=== PATIENT | male | born 1965 | race Caucasian/White ===

== ENCOUNTER 2023-01-26 08:00 | Inpatient (IN) | payer BC, SELFPAY ==
[2023-01-26] VITALS (9 sets, daily range): BP systolic 149–178; BP diastolic 74–96; PULSE 58–93; RESP 16–17; TEMP 36.4; O2SAT 96–98
--- NOTE | 2023-01-26 08:51 | XRR_ITS ---
PROCEDURE INFORMATION: Exam: XR Chest Exam date and time: 01/26/2023 9:20 AM Age: 57 years old Clinical indication: Dyspnea; Additional info: Partially resolved hemiparesis TECHNIQUE: Imaging protocol: Radiologic exam of the chest. Views: 1 view. COMPARISON: No relevant prior studies available. FINDINGS: Lungs: Unremarkable. No consolidation. Pleural spaces: Unremarkable. No pleural effusion. No pneumothorax. Heart/Mediastinum: Unremarkable. No cardiomegaly. Bones/joints: Unremarkable. XR/XR chest 1V portable [id number] IMPRESSION: No acute findings.
--- NOTE | 2023-01-26 08:52 | CTR_ITS ---
PROCEDURE INFORMATION: Exam: CT Head Without Contrast Exam date and time: 01/26/2023 9:24 AM Age: 57 years old Clinical indication: Stroke-like symptoms; Altered mental status/memory loss; Additional info: Symptoms of acute stroke TECHNIQUE: Imaging protocol: Computed tomography of the head without contrast. Radiation optimization: All CT scans at this facility use at least one of these dose optimization techniques: automated exposure control; mA and/or kV adjustment per patient size (includes targeted exams where dose is matched to clinical indication); or iterative reconstruction. Other technique: STROKE PROTOCOL was implemented. REPORTING DATA: Count of CT and Cardiac NM exams in prior 12 months: This patient has received 0 known CTs and 0 known cardiac nuclear medicine studies in the 12 months prior to the current study. COMPARISON: No relevant prior studies available. RADIATION DOSE METRICS: Total DLP (mGy-cm): 1220.2 FINDINGS: Brain: Prominent cisterna magna. No intracranial hemorrhage. No midline. Areas of suspected chronic disease are seen chiefly in the right parietal white matter. There is an old infarcts suspected in the left posterior parietal high qureshi matter. Cerebral ventricles: No ventriculomegaly. Paranasal sinuses: Visualized sinuses are unremarkable. No fluid levels. Mastoid air cells: Visualized mastoid air cells are well aerated. Bones/joints: Unremarkable. No acute fracture. Soft tissues: Unremarkable. CT/CT head thrombolytic [id number] IMPRESSION: Chronic age-related changes with possible old white matter infarcts and old left posterior parietal high qureshi matter infarct. No intracranial hemorrhage. ASSESSMENT: ASPECTS ([place] Stroke Program Early CT Score) is 10.
--- NOTE | 2023-01-26 08:54 | ED_ITS ---
HPI - Extremity Problem General: Chief complaint: Extremity Problem,Nontraumatic Stated complaint: lost feeling in both legs and right arm numb Time Seen by Provider: 01/26/23 08:08 History of Present Illness: Patient presents with complaints of right sided weakness Patient reports 3-week history of right lower extremity weakness that waxes and wanes. Last night at 0 100 patient woke up with right upper extremity weakness. Patient describes inability to ambulate or grasp any objects with the right arm. He attempted to go to another facility but sat in the waiting room for about 3 or 4 hours. Patient ultimately got frustrated and left the hospital. This morning he opted to come to [facility] for evaluation. At the time of his arrival patient has improvement in his right upper and right lower extremity although still pretty significant. He can range of motion the right upper extremity but is weaker Patient is ataxic with the right lower extremity Patient also relays a history approximately 1 month ago with word finding difficulty and speech difficulty. His symptoms lasted 3 days Associated symptoms: Deny chest pain, fever(s) or rash Review of Systems General: Reports: 10 or more systems reviewed and unremarkable except in HPI and below Const: Denies: fever(s), chills, change in appetite, change in weight, fatigue or malaise Eyes: Denies: change in vision, eye discomfort, eye discharge or eye redness ENMT: Denies: throat pain, enlarged tonsils, odynophagia, hoarseness, ear or mastoid pain, ear discharge, change in hearing, tinnitus, nasal discharge, nasal congestion, post nasal drip or sinus pain Card: Denies: chest pain, palpitations, irregular heart rhythm, edema, dyspnea on exertion, orthopnea or leg pain with exertion Resp: Denies: dyspnea, productive cough, non-productive cough, wheezing, str idor or chest congestion GI: Denies: abdominal pain, nausea, vomiting, dysphagia, diarrhea, constipation, bloating, GI cramping or hematochezia : Denies: flank pain, dysuria, urinary frequency, urinary urgency, urinary hesitancy, oliguria or hematuria Musc: Denies: neck pain, back pain, extremity pain, joint pain, joint swelling, joint redness, joint warmth or muscle weakness Skin/Breast: Denies: rash, pruritus, erythema, photosensitivity or new lesions Neuro: Reports: weakness in extremities, sensory changes and difficulty walking; Denies: headache(s), numbness in extremities, lack of coordination, frequent falls, dizziness, confusion, Slurred speech present, difficulty communicating thoughts, seizure-like activity or involuntary movements Endo: Denies: polyuria, polydipsia or tired all the time Herman/Lymph: Denies: easy bruising or easy bleeding PFSH ED PFSH: Medical History (Updated 01/26/23 @ 12:16 by OSWALD Mckeon) Low back pain potentially associated with radiculopathy Physical Exam Const: COMMON NORMALS: no acute distress, patient oriented x3 and alert GENERAL APPEARANCE: cooperative ORIENTATION/CONSCIOUSNESS: Yes awake, Yes oriented to person, Yes oriented to place and Yes oriented to time HENMT: COMMON NORMALS: normocephalic and atraumatic HEAD & SCALP: normocephalic and atraumatic FACE & SINUS: normal facial exam MOUTH: Normal oral and palatal mucosa present THROAT: posterior oropharynx normal Eye: COMMON NORMALS: Equal, round and reactive pupils present, EOMs intact bilaterally, conjunctivae normal and no scleral icterus GENERAL EYE: appearance normal, both eyes and all related structures ALIGNMENT: Yes alignment normal PERIORBITAL: periorbital findings normal CONJUNCTIVA: Yes conjunctivae normal PUPIL: Yes Equal, round and reactive pupils present Neck/C-Spine: COMMON NORMALS: full ROM GENERAL: Yes normal visual inspection Lymph: LYMPHATIC: no lymphadenopathy noted Chest: COMMONS NORMALS: normal inspection of the chest Breast/axilla inspection: Yes no chest deformity, asymmetry, normal contours, no nodules, masses, tenderness Resp: COMMON NORMALS: normal respiratory effort, No retractions, No use of accessory muscles and clear to auscultation bilaterally EFFORT & INSPECTION: Yes able to speak in complete sentences and Yes symmetric chest movement AUSCULTATION: clear to auscultation bilaterally Cardio: COMMON NORMALS: regular rate, regular rhythm and Peripheral pulses 2+ throughout RATE: regular rate RHYTHM: regular rhythm PERIPHERAL PULSES: Peripheral pulses 2+ throughout GI: COMMON NORMALS: Normal to inspection, nondistended, normoactive bowel sounds present, Soft to palpation, non-tender and No hepatosplenomegaly present INSPECTION: Yes normal to inspection AUSCULTATION: Yes normoactive bowel sounds PALPATION: Yes Soft to palpation and Yes No hepatosplenomegaly present RECTAL EXAM: Yes deferred Extremity: COMMON NORMALS: normal to inspection GENERAL: Yes normal exam except as noted Neuro: COMMON NORMALS: patient oriented x3 SENSORIUM/ORIENTATION: Yes alert, Yes oriented to person, Yes oriented to place and Yes oriented to time CRANIAL NERVES: Yes CN normal except as noted COORDINATION/BALANCE: No nyhluc-sm-ncdr test normal (Ataxic), No hniw-ko-ddcl test normal (Ataxic with the right lower extremity) and No Normal rapid alternating movements of the di stal upper extremity present (Neuro) (Abnormal with right upper extremity) COORDINATION: tilqvv-ug-hoks test abnormal (Ataxic), gigb-wm-ysek test abnormal (Ataxic with the right lower extremity) and abnormal rapid alternating movement UE (Abnormal with right upper extremity) PUPIL EXAM: Normal pupillary reactivity/response: right, left and bilateral Psych: COMMON NORMALS: mental status grossly normal, Normal thought process present, cooperative, activity/motor behavior normal, denies homicidal ideation and denies suicidal ideation THOUGHT PROCESS: Normal thought process present Skin: COMMON NORMALS: no rashes or lesions noted, no wounds and turgor normal GENERAL SKIN EXAM: no rashes or lesions noted and turgor normal Course Vital Signs: Vital signs: Vital Signs Pulse Rate 85 01/26/23 10:47 Respiratory Rate 16 01/26/23 08:28 Blood Pressure 156/81 01/26/23 10:47 Pulse Oximetry 97 01/26/23 10:47 Oxygen Delivery Me thod Room Air 01/26/23 08:28 MDM - Extremity (Nontraumatic) Medical Decision Making Patient was evaluated in the emergency department for complaints of right upper and lower extremity weakness. He has had this weakness in the right lower extremity for about 3 weeks. The symptoms would ask and wane but always present. Right upper extremity weakness developed at 0 100 last night Differential diagnosis included neurological events including a CVA, cervical and lumbar nerve root compressions however unlikely. Patient underwent a CT head which revealed no acute hemorrhage but evidence of multiple old infarcts. Laboratory studies revealed a leukocytosis without evidence of shift. No electrolyte abnormalities. EKG completed at 0901 which revealed a sinus rhythm without ectopy, ST elevation or abnormal T wave inversion. I spoke with Dr. Moise, neurology who has recommended a CT angio, 2D echo with bubble study, thrombosis labs, sed rate, JOSÉ, CRP I also spoke with hospitalist who is agreeable to admission Patient and family updated Lab Data 01/26/23 09:46 01/26/23 09:46 Radiology Impressions Chest X-Ray 01/26/23 08:51 IMPRESSION: No acute findings. 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 No intracranial hemorrhage. ASSESSMENT: ASPECTS ([place] Stroke Program Early CT Score) is 10. Laboratory Results WBC 14.7 10^3/uL (4.0-10.0) H 01/26/23 09:46 RBC 5.43 10^6/uL (4.1-5.3) H 01/26/23 09:46 Hgb 15.6 g/dL (11.7-16.6) 01/26/23 09:46 Hct 47.2 % (42.0-52.0) 01/26/23 09:46 MCV 86.9 fl (80-94) 01/26/23 09:46 MCH 28.7 pg (28.0-34.0) 01/26/23 09:46 MCHC 33.1 g/dL (30.0-36.0) 01/26/23 09:46 RDW 13.6 % (12.1-15.1) 01/26/23 09:46 Plt Count 253 10^3/cmm (130-400) 01/26/23 09:46 MPV 11.8 fL (7.4-10.4) H 01/26/23 09:46 Neut % (Auto) 69.4 % 01/26/23 09:46 Lymph % (Auto) 23.9 % 01/26/23 09:46 [place] % (Auto) 6.1 % 01/26/23 09:46 Eos % (Auto) 0.2 % 01/26/23 09:46 Baso % (Auto) 0.1 % 01/26/23 09:46 Neut # (Auto) 10.19 10^3/uL (1.8-7.7) H 01/26/23 09:46 Lymph # (Auto) 3.5 10^3/uL (0.8-4.8) 01/26/23 09:46 [place] # (Auto) 0.9 10^3/uL (0.2-0.9) 01/26/23 09:46 Eos # (Auto) 0.0 10^3/uL (0.0-0.8) 01/26/23 09:46 Baso # (Auto) 0.0 10^3/uL (0.0-0.1) 01/26/23 09:46 Nucleated RBC % (auto) 0 % 01/26/23 09:46 Nucleated RBCs # 0.0 /100WBC 01/26/23 09:46 PT 13.50 SECONDS (12.1-14.9) 01/26/23 09:46 INR 1.00 (0.8-1.2) 01/26/23 09:46 APTT 29.5 SECONDS (23.9-36.7) 01/26/23 09:46 Sodium 143 mmol/L (136-145) 01/26/23 09:46 Potassium 4.1 mmol/L (3.5-5.1) 01/26/23 09:46 Chloride 107 mmol/L (98-107) 01/26/23 09:46 Carbon Dioxide 23 mmol/L (22-29) 01/26/23 09:46 Anion Gap 17.1 (5-19) 01/26/23 09:46 BUN 14 mg/dL (6-20) 01/26/23 09:46 Creatinine 0.8 mg/dL (0.7-1.2) 01/26/23 09:46 GFR Calculation 99.3 mL/min (90-130) 01/26/23 09:46 Glucose 101 mg/dL (65-115) 01/26/23 09:46 POC Glucose 107 mg/dL (70-110) 01/26/23 09:37 Calculated Osmolality 297 mOsm/kg (285-295) H 01/26/23 09:46 Calcium 10.0 mg/dL (8.5-10.5) 01/26/23 09:46 Total Bilirubin 0.7 mg/dL (0.15-1.2) 01/26/23 09:46 AST 15 U/L (0-40) 01/26/23 09:46 ALT 23 U/L (0-41) 01/26/23 09:46 Alkaline Phosphatase 108 U/L (40-130) 01/26/23 09:46 Troponin T Gen 5 ng/L 12 ng/L (0-15) 01/26/23 09:46 Total Protein 7.4 g/dL (6.6-8.7) 01/26/23 09:46 Albumin 4.7 g/dL (3.5-5.2) 01/26/23 09:46 Globulin 2.7 g/dL (1.3-4.6) 01/26/23 09:46 Urine Color Yellow (Yellow) 01/26/23 10:33 Urine Appearance Clear (CLEAR) 01/26/23 10:33 Urine pH 5 (5-7) 01/26/23 10:33 Ur Specific [place] 1.020 (1.005-1.030) 01/26/23 10:33 Urine Protein Neg (Negative) 01/26/23 10:33 Urine Glucose (UA) Trace (Normal) H 01/26/23 10:33 Urine Ketones Negative (Negative) 01/26/23 10:33 Urine Blood Neg (Negative) 01/26/23 10:33 Urine Nitrate Negative (Negative) 01/26/23 10:33 Urine Bilirubin Neg (Negative) 01/26/23 10:33 Urine Urobilinogen Norm mg/dL (Negative) 01/26/23 10:33 Ur Leukocyte Esterase Negative (Negative) 01/26/23 10:33 Urine Opiates Screen Negative ng/mL (Negative) 01/26/23 10:33 Ur Barbiturates Screen Negative ng/mL (Negative) 01/26/23 10:33 Ur Phencyclidine Scrn Negative ng/mL (Negative) 01/26/23 10:33 Ur Amphetamines Screen Negative ng/mL (Negative) 01/26/23 10:33 U Benzodiazepines Scrn Negative ng/mL (Negative) 01/26/23 10:33 Urine Cocaine Screen Negative ng/mL (Negative) 01/26/23 10:33 U Marijuana (THC) Screen Positive ng/mL (Negative) H 01/26/23 10:33 Discharge Plan Discharge Patient Disposition: Admitted As Inpatient Clinical Impression: Ischemic cerebrovascular accident (CVA), Tobacco use, Marijuana use Condition: Stable Prescriptions: No Action atorvastatin 20 mg tablet 20 mg PO QPM lisinopril 20 mg tablet 20 mg PO QPM prednisone 10 mg tablet 30 mg PO DAILY 5 Days Qty: 15 0RF methocarbamol 750 mg tablet 750 mg PO TID 5 Days Qty: 15 0RF Referrals: Karon Bryant NP [Primary Care Provider] - Coding Level of Care Code ED Public [employer] Specialist for Sourav Torres
--- NOTE | 2023-01-26 09:01 | ECG_ITS ---
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 Measurements Intervals [place] Rate: 76 P: 43 PA: 176 QRS: -22 QRSD: 96 T: 39 QT: 393 QTc: 442 Interpretive Statements SINUS RHYTHM BORDERLINE LEFT AXIS DEVIATION [QRS AXIS < -20] MINIMAL VOLTAGE CRITERIA FOR LVH, CONSIDER NORMAL VARIANT [MEETS CRITERIA IN ONE OF: R(aVL), S(V1), R(V5), R(V5/V6)+S(V1)] No previous ECG available for comparison Electronically Signed On 01-26-2023 11:41:12 CDT by Tracie Bowden M.D. [id number]
[2023-01-26 09:43] LABS: Glucose Point of Care 107 mg/dL (70-110)
[2023-01-26 10:04] LABS: Basophils % 0.1 %; Eosinophils % 0.2 %; Hematocrit 47.2 % (42.0-52.0); Hemoglobin 15.6 g/dL (11.7-16.6); Lymphocytes # 3.5 10^3/uL (0.8-4.8); Lymphocytes % 23.9 %; Mean Corpuscular HGB Conc 33.1 g/dL (30.0-36.0); Mean Corpuscular Hemoglobin 28.7 pg (28.0-34.0); Mean Corpuscular Volume 86.9 fl (80-94); Mean Platelet Volume 11.8 fL (7.4-10.4); Monocytes # 0.9 10^3/uL (0.2-0.9); Monocytes % 6.1 %; Neutrophils # 10.19 10^3/uL (1.8-7.7); Neutrophils % 69.4 %; Nucleated Red Blood Cells % 0 %; Platelet Count 253 10^3/cmm (130-400); Red Blood Count 5.43 10^6/uL (4.1-5.3); Red Cell Distribution Width 13.6 % (12.1-15.1); White Blood Count 14.7 10^3/uL (4.0-10.0)
[2023-01-26 10:15] LABS: Partial Thromboplastin Time 29.5 SECONDS (23.9-36.7)
[2023-01-26 10:18] LABS: Alanine Aminotransferase 23 U/L (0-41); Albumin Level 4.7 g/dL (3.5-5.2); Alkaline Phosphatase 108 U/L (40-130); Anion Gap 17.1 (5-19); Aspartate Amino Transferase 15 U/L (0-40); Blood Urea Nitrogen 14 mg/dL (6-20); Carbon Dioxide 23 mmol/L (22-29); Chloride 107 mmol/L (98-107); Globulin 2.7 g/dL (1.3-4.6); Glomerular Filtration Rate 99.3 mL/min (90-130); Glucose 101 mg/dL (65-115); Osmolality Calculated 297 mOsm/kg (285-295); Potassium 4.1 mmol/L (3.5-5.1); Sodium 143 mmol/L (136-145); Total Bilirubin 0.7 mg/dL (0.15-1.2); Total Protein 7.4 g/dL (6.6-8.7)
[2023-01-26 10:23] LABS: Troponin T (5th) Once 12 ng/L (0-15)
[2023-01-26 10:37] LABS: Add Urine Microscopic? NO; Charge for UA Resulting for Rev
[2023-01-26 11:09] LABS: Bilirubin Urine Neg (Negative); Blood Urine Neg (Negative); Glucose Urine UA Trace (Normal); Ketones Urine Negative (Negative); Leukocyte Esterase Urine Negative (Negative); Nitrate Urine Negative (Negative); Protein Urine Neg (Negative); Urine Appearance Clear (CLEAR); Urine Color Yellow (Yellow); Urobilinogen Urine Norm (Negative); pH Urine 5 (5-7)
[2023-01-26 11:21] LABS: Amphetamines Screen Urine Negative (Negative); Barbiturates Screen Urine Negative (Negative); Benzodiazepines Screen Urine Negative (Negative); Cocaine Screen Urine Negative (Negative); Opiate Screen Urine Negative (Negative); PCP Screen Urine Negative (Negative); THC Screen Urine Positive (Negative)
--- NOTE | 2023-01-26 11:37 | USCV_ITS ---
Chiki Dennis Age: 57 Gender: M : 1965 Exam Date: 01/26/2023 12:51 Ordering Phys: Eva Elmore Technologist: Pollo Crooks Exam Location: [facility] [place] Indication: tia vs cva BP: 156 / 80 HR: 78 Rhythm: Sinus Technical Quality: Adequate MEASUREMENTS (Male / Female) Normal Values 2D ECHO LV Diastolic Diameter PLAX 5.7 cm 4.2 - 5.9 / 3.9 - 5.3 cm LV Systolic Diameter PLAX 3.0 cm IVS Diastolic Thickness 1.4 cm 0.6 - 1.0 / 0.6 - 0.9 cm IVS Systolic Thickness 2.0 cm LVPW Diastolic Thickness 1.4 cm 0.6 - 1.0 / 0.6 - 0.9 cm LVPW Systolic Thickness 1.9 cm LVOT Diameter 2.3 cm LV Ejection Fraction 2D Teich 78.2 % LV Ejection Fraction MOD 2C 57.9 % LV Ejection Fraction 2C AL 58.3 % LA Diameter 4.3 cm M-MODE LV Diastolic Diameter MM 5.6 cm 4.2 - 5.9 / 3.9 - 5.3 cm LV Systolic Diameter MM 3.3 cm LV Ejection Fraction MM Teich 70.7 % IVS Diastolic Thickness MM 1.2 cm 0.6 - 1.0 / 0.6 - 0.9 cm IVS Systolic Thickness MM 1.8 cm LVPW Diastolic Thickness MM 1.4 cm 0.6 - 1.0 / 0.6 - 0.9 cm LVPW Systolic Thickness MM 1.9 cm RV Diastolic Diameter MM 1.7 cm Aortic Annulus Diameter 2.3 cm LA Ao Ratio MM 2.0 MV E Point Septal Separation 0.9 cm DOPPLER AV Peak Velocity 153.0 cm/s LVOT Peak Velocity 98.0 cm/s AV Area Cont Eq vti 2.9 cm squared AV Area Cont Eq pk 2.7 cm squared MV Area PHT 5.0 cm squared Mitral E to A Ratio 0.9 MV E' Velocity 45.0 cm/s Mitral E to MV E' Ratio 6.7 Mitral E to LV E' Lateral Ratio 6.0 Mitral E to LV E' Septal Ratio 7.6 TR Peak Velocity 129.3 cm/s TR Peak Gradient 6.7 mmHg TV Peak E Velocity 84.0 cm/s Right Atrial Pressure 3.0 mmHg Pulmonary Artery Systolic Pressu 9.7 mmHg RV Acceleration Time 0.2 s FINDINGS Left Ventricle Normal left ventricular size, systolic function and wall thickness, with no regional wall motion abnormalities. Left ventricular ejection fraction is estimated at 55-60 %. Normal diastolic function. Right Ventricle Normal right ventricular size and systolic function. RVSP could not be calculated due to incomplete tricuspid regurgitation velocity profile. Right Atrium Normal right atrial size. No evidence of intracardiac shunt by agitated saline/bubble study. Left Atrium Normal left atrial size. Mitral Valve Structurally normal mitral valve. No mitral valve stenosis. Trace mitral valve regurgitation. Aortic Valve Structurally normal trileaflet aortic valve. No aortic valve stenosis. No aortic valve regurgitation. Tricuspid Valve Structurally normal tricuspid valve. No tricuspid valve stenosis. Pulmonic Valve Pulmonic valve not well visualized. Pericardium No pericardial effusion. Aorta Normal size aortic root and proximal ascending aorta. IVC Normal IVC dimension with >50% respiratory change of the inferior vena cava. CONCLUSIONS 1. Normal left ventricular size, systolic function and wall thickness, with no regional wall motion abnormalities. Left ventricular ejection fraction is estimated at 55-60 %. Normal diastolic function. 2. No evidence of intracardiac shunt by agitated saline/bubble study. 3. No prior similar studies to compare. Tracie Bowden MD (Electronically Signed) Final Date: 26 January 2023 17:23 S
--- NOTE | 2023-01-26 11:37 | CTR_ITS ---
PROCEDURE INFORMATION: Exam: CTA Head With Contrast, Arteriography Exam date and time: 01/26/2023 1:31 PM Age: 57 years old Clinical indication: Weakness; Additional info: Stroke like symptoms TECHNIQUE: Imaging protocol: Computed tomographic angiography of the head with contrast. Exam focused on the arteries. 3D rendering (Not supervised by radiologist): MIP and/or 3D reconstructed images were created by the technologist. Radiation optimization: All CT scans at this facility use at least one of these dose optimization techniques: automated exposure control; mA and/or kV adjustment per patient size (includes targeted exams where dose is matched to clinical indication); or iterative reconstruction. Contrast material: OMNI 350; Contrast volume: 100 ml; Contrast route: INTRAVENOUS (IV); REPORTING DATA: Count of CT and Cardiac NM exams in prior 12 months: This patient has received 0 known CTs and 0 known cardiac nuclear medicine studies in the 12 months prior to the current study. COMPARISON: CT head thrombolytic [id number] 01/26/2023 9:24 AM RADIATION DOSE METRICS: Total DLP (mGy-cm): 529.16 FINDINGS: ANTERIOR CIRCULATION: Right internal carotid artery: Intracranial segment is patent with no significant stenosis. No aneurysm. Atherosclerotic calcification along the cavernous segment. Right middle cerebral artery: No occlusion or significant stenosis. No aneurysm. Right anterior cerebral artery: No occlusion or significant stenosis. No aneurysm. Left internal carotid artery: Completely occluded. Left middle cerebral artery: No occlusion or significant stenosis. No aneurysm. Left anterior cerebral artery: No occlusion or significant stenosis. No aneurysm. POSTERIOR CIRCULATION: Right vertebral artery: No occlusion or significant stenosis. No aneurysm. Left vertebral artery: No occlusion or significant stenosis. No aneurysm. Basilar artery: No occlusion or significant stenosis. No aneurysm. Right posterior cerebral artery: No occlusion or significant stenosis. No aneurysm. Left posterior cerebral artery: No occlusion or significant stenosis. No aneurysm. Brain: No definite mass, mass effect, or midline shift. Chronic changes better appreciated on comparison noncontrast head CT from earlier today. Cerebral ventricles: No ventriculomegaly. Bones/joints: Unremarkable. No acute fracture. Soft tissues: Unremarkable. PROCEDURE INFORMATION: Exam: CTA Neck With Contrast Exam date and time: 01/26/2023 1:31 PM Age: 57 years old Clinical indication: Weakness; Additional info: Stroke like symptoms TECHNIQUE: Imaging protocol: Computed tomographic angiography of the neck with contrast. 3D rendering (Not supervised by radiologist): MIP and/or 3D reconstructed images were created by the technologist. Radiation optimization: All CT scans at this facility use at least one of these dose optimization techniques: automated exposure control; mA and/or kV adjustment per patient size (includes targeted exams where dose is matched to clinical indication); or iterative reconstruction. Contrast material: OMNI 350; Contrast volume: 100 ml; Contrast route: INTRAVENOUS (IV); REPORTING DATA: Count of CT and Cardiac NM exams in prior 12 months: This patient has received 0 known CTs and 0 known cardiac nuclear medicine studies in the 12 months prior to the current study. COMPARISON: 1. CT head thrombolytic [id number] 01/26/2023 9:24 AM 2. CR (CHEST, ) 01/26/2023 9:20 AM RADIATION DOSE METRICS: Total DLP (mGy-cm): 529.16 FINDINGS: Right common carotid artery: No stenosis. No dissection or occlusion. Right internal carotid artery: Moderately narrowed, approximately 60%, by mixed soft and calcific plaque at the origin. No dissection or occlusion. Right external carotid artery: No occlusion or stenosis of the origin. Left common carotid artery: Completely occluded. Left internal carotid artery: Completely occluded. Left external carotid artery: No occlusion or stenosis of the origin. Right vertebral artery: No stenosis. No dissection or occlusion. Left vertebral artery: No stenosis. No dissection or occlusion. Soft tissues: 1.9 cm posterior midline neck epidermal inclusion cyst. Bones/joints: No acute fracture. Lungs: Small air-filled cyst at the right lung apex. CT/CT angio headneck* [id number] IMPRESSION: Complete occlusion of the left internal carotid artery. Patent opacified left anterior and middle cerebral arteries. IMPRESSION: 1. Complete occlusion of the left common and internal carotid arteries. 2. Focal moderate narrowing of the proximal right internal carotid artery. REFERENCES: NASCET CRITERIA. The degree of stenosis in the cervical segment of the internal carotid artery is based on NASCET criteria. Normal is no stenosis. Mild is less than 50% stenosis. Moderate is 50-69% stenosis. Severe is 70% to 99% stenosis. Total occlusion is no detectable patent lumen.
--- NOTE | 2023-01-26 12:03 | CTR_ITS ---
PROCEDURE INFORMATION: Exam: CT Lumbar Spine Without Contrast Exam date and time: 01/26/2023 1:29 PM Age: 57 years old Clinical indication: Pain; Weakness; Lumbago with sciatica; Bilateral TECHNIQUE: Imaging protocol: Computed tomography of the lumbar spine without contrast. Radiation optimization: All CT scans at this facility use at least one of these dose optimization techniques: automated exposure control; mA and/or kV adjustment per patient size (includes targeted exams where dose is matched to clinical indication); or iterative reconstruction. REPORTING DATA: Count of CT and Cardiac NM exams in prior 12 months: This patient has received 0 known CTs and 0 known cardiac nuclear medicine studies in the 12 months prior to the current study. COMPARISON: No relevant prior studies available. RADIATION DOSE METRICS: Total DLP (mGy-cm): 1055.42 FINDINGS: Bones/joints: No fracture. Normal alignment. T12/L1: No acute abnormality. L1/L2: No acute abnormality. L2/L3: Mild disc bulging centrally. No disc protrusion or extrusion. Unremarkable foramina for age. L3/4: No disc protrusion or extrusion with central disc bulging. No spinal stenosis. Mild to moderate foraminal narrowing due to spurring bilaterally. L4/5: Suspect a central disc extrusion with mild spinal stenosis at 8.5 mm. Disc material enters the origin the right foramina mild to moderately narrowing it. Disc material as well into the left foramina mild to moderately narrow. L5/S1: Central disc bulging without protrusion, extrusion or stenosis. Mildly narrowed foramina. Soft tissues: Unremarkable. CT/CT lumbar spine wo con* [id number] IMPRESSION: Central disc extrusion L4/5 with spinal stenosis with disc material extending to the origin of each foramina.
--- NOTE | 2023-01-26 12:04 | USR_ITS ---
PROCEDURE INFORMATION: Exam: US Duplex Lower Extremity Veins, Bilateral Exam date and time: 01/26/2023 1:04 PM Age: 57 years old Clinical indication: Other: ? Pe; Additional info: Dvt TECHNIQUE: Imaging protocol: Real-time duplex ultrasound of the bilateral extremities with 2-D qureshi scale, color Doppler flow and spectral waveform analysis including responses to compression and other maneuvers (when performed) with image documentation. Complete exam focused on the lower extremity veins. COMPARISON: No relevant prior studies available. FINDINGS: Right deep veins: Unremarkable. The common femoral, femoral, proximal profunda femoral and popliteal veins are patent without thrombus. Normal Doppler waveforms. Normal compressibility and/or augmentation response. Right superficial veins: Saphenofemoral junction is patent without thrombus. Left deep veins: Unremarkable. The common femoral, femoral, proximal profunda femoral and popliteal veins are patent without thrombus. Normal Doppler waveforms. Normal compressibility and/or augmentation response. Left superficial veins: Saphenofemoral junction is patent without thrombus. Soft tissues: Unremarkable. US/CV venous duplex [facility] [id number] IMPRESSION: No evidence of deep vein thrombosis.
--- NOTE | 2023-01-26 12:08 | P.HP_ITS ---
Providers/Chief Complaint Primary Care Provider: Karon Bryant NP Chief Complaint: lost feeling in both legs and right arm numb History of Present Illness Chiki Dennis is a 57 year old male with a past medical history of hyperlipidemia, hypertension, smoker, who presents to [facility] due to right upper extremity weakness, right lower extremity weakness, slurring of his words, imbalance. Patient tells me that roughly 4 weeks ago he had a 3-day stretch in which she had productive aphasia, word finding difficulty, it was intermittent, it lasted for roughly 3 days. 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 He tells me that a few days ago he started to notice that he developed right lower extremity weakness, it felt as if his right lower extremity was weak, had trouble coordinating, he could stand on it, but if felt weak, had trouble coordinating, does not report any paresthesias. Denies any back pain, no sciatica, no urinary or bowel incontinence no saddle apparent and anesthesia. So he saw his primary care provider who started him on prednisone and a muscle laxer for his pain. He tells me that in the evening time, he noticed that his right lower extremity completely went he tells me, he had complete weakness of his right lower extremity, and lack of sensation in his right lower extremity, trouble coordinating. He actually knocked Ch to seek medical attention, however the wait was so long. He tells me in the morning time he started to develop right upper extremity weakness, trouble coordinating, but now the right upper extremity weakness has significantly resolved to some degree continues to have trouble coordinating the right upper extremity, still some degree of weakness. He tells me that right now his right lower extremity weakness is significant trouble coordinating, he tells me right now it completely feels . Currently his NIH stroke scale is 6, he is out of tPA window, onset of symptoms at least for the right upper extremity or this morning, roughly at 7, the symptoms for the right lower extremity have been ongoing for the last few days. Currently alert and oriented x3, following all commands, family members at bedside Review of Systems Const: Denies: fever(s) or chills Eyes: Denies: change in vision ENMT: Denies: throat pain Card: Denies: chest pain or palpitations Resp: Denies: dyspnea, productive cough or non-productive cough GI: Denies: abdominal pain, nausea or vomiting : Denies: flank pain or difficulty urinating Musc: Denies: neck pain, back pain or extremity pain Skin/Breast: Denies: rash Neuro: Reports: numbness in extremities, weakness in extremities, sensory changes, lack of coordination and difficulty walking; Denies: headache(s), frequent falls, dizziness, vertigo, confusion, behavioral changes, Slurred speech present, difficulty communicating thoughts, seizure-like activity, involuntary movements or restless legs Psych: Denies: anxiety Endo: Denies: polyuria or polydipsia Herman/Lymph: Denies: easy bruising Medications/Allergies Home Medications Medication Instructions Recorded Confirmed Last Taken Type atorvastatin 20 mg tablet 20 mg PO QPM 01/25/23 01/26/23 01/25/23 History lisinopril 20 mg tablet 20 mg PO QPM 01/25/23 01/26/23 01/25/23 History methocarbamol 750 mg tablet 750 mg PO TID 5 days #15 tabs 01/25/23 01/26/23 01/25/23 Rx prednisone 10 mg tablet 30 mg PO DAILY 5 days #15 tabs 01/25/23 01/26/23 01/25/23 Rx Allergies Allergy/AdvReac Type Severity Reaction Status Date / Time No Known Allergies Allergy Unverified 01/26/23 08:33 PFSH Acute PFSH: Medical History (Updated 01/26/23 @ 12:17 by Missael Corado MD) Low back pain potentially associated with radiculopathy Surgical History (Updated 01/26/23 @ 12:18 by Missael Corado MD) No pertinent past surgical history Family History (Updated 01/26/23 @ 12:18 by Missael Corado MD) Father CAD (coronary artery disease) Social History (Updated 01/26/23 @ 12:18 by Missael Corado MD) Smoking and tobacco status: current every day smoker Alcohol intake: never Substance/Drug Use: never Vitals/I&O/Wt Last Vital Signs Pulse 85 01/26/23 10:47 Resp 16 01/26/23 08:28 BP 156/81 01/26/23 10:47 Pulse Ox 97 07/22/23 10:47 O2 Del Method Room Air 01/26/23 08:28 Weight last 48 hrs Weight 93.894 kg Physical Exam Const: COMMON NORMALS: no acute distress and patient oriented x3 GENERAL APPEARANCE: cooperative, well kempt and well developed HENMT: COMMON NORMALS: normocephalic, Normal external nose present and oropharynx normal FACE & SINUS: normal facial exam NOSE: Normal external nose present MOUTH: Normal oral and palatal mucosa present Eye: COMMON NORMALS: Equal, round and reactive pupils present, EOMs intact bilaterally, conjunctivae normal and no scleral icterus CONJUNCTIVA: Yes conjunctivae normal PUPIL: Yes Equal, round and reactive pupils present Neck/C-Spine: COMMON NORMALS: full ROM, no lymphadenopathy, no JVD, Thyroid normal and No carotid bruits THYROID: Thyroid normal Lymph: LYMPHATIC: no lymphadenopathy noted Chest: COMMONS NORMALS: normal inspection of the chest Resp: COMMON NORMALS: normal respiratory effort, No retractions, No use of accessory muscles and clear to auscultation bilaterally AUSCULTATION: clear to auscultation bilaterally Cardio: COMMON NORMALS: regular rate, regular rhythm, S1 normal heart sound present, S2 normal heart sound present, No murmurs present (Cardio) and Peripheral pulses 2+ throughout RATE: regular rate RHYTHM: regular rhythm HEART SOUNDS: S1 normal heart sound present and S2 normal heart sound present PERIPHERAL PULSES: Peripheral pulses 2+ throughout GI: COMMON NORMALS: Normal to inspection, nondistended, normoactive bowel sounds present, Soft to palpation and non-tender PALPATION: Yes Soft to palpation : BLADDER/KIDNEY EXAM: Yes no CVA tenderness Back/Pelvis: COMMON NORMALS: no CVA tenderness Extremity: COMMON NORMALS: normal to inspection, full ROM, capillary refill normal, no calf tenderness and no pedal edema Neuro: COMMON NORMALS: patient oriented x3, CN's II-XII intact bilaterally and moves all extremities OTHER: Right upper extremity [id number] abnormal, strength diminished 4 out of 5 compared to the left Right lower extremity, abnormal [id number], strength 3 out of 5 compared to the left Right lower extremity, diminished sensation throughout No calf pain, no calf swelling Visual kiran intact Has ataxia right upper right lower extremity No facial droop No slurring of words No finding difficulty Visual kiran intact PERRLA NIH stroke scale 6 Psych: COMMON NORMALS: mental status grossly normal, Normal thought process present, cooperative and speech normal APPEARANCE: Yes well kempt SPEECH: Yes normal speech THOUGHT PROCESS: Normal thought process present Skin: COMMON NORMALS: turgor normal and no jaundice GENERAL SKIN EXAM: turgor normal Data 01/26/23 09:46 01/26/23 09:46 CXR: My impression: No acute infiltrates EKG 1: My Interpretation: No acute ST-T wave changes A&P Assessment and plan (1) Acute CVA (cerebrovascular accident): (2) Tobacco use: (3) Encounter for smoking cessation counseling: (4) Goals of care, counseling/discussion: Plan Acute CVA -ct head -Chronic age-related changes with possible old white matter infarcts and old left posterior parietal high qureshi matter infarct.? No intracranial hemorrhage. -Right upper right lower extremity deficits, with ataxia, night stroke scale 6 -Out of tPA window -Out of window for clot retrieval -At least right lower extremity symptoms have been going on for the last few days -Risk factors include hypertension, hyperlipidemia, smoking Plan -Admit to medical floors -Monitor blood pressures allow for permissive hypertension, -Treat systolic of his greater than 220 diastolic of is greater than 120 -CT angiogram of the head ordered -Echo bubble study -CT lumbar spine. ? ESR, hypercoagulable panel. -Recently returned from a trip, road trip to [place], venous ultrasound bilateral extremities ? Neurochecks, NIH stroke scale. ? Nurse bedside dysphagia evaluation. ? Speech therapy eval, PT OT. ? Monitor neurologic status closely. ? Aspirin, statin, IV fluid. ?, Neurology consulted through ER. ? Goals of care discussion patient would like to be a full code. ?, Lovenox for DVT prophylaxis -Does have leukocytosis, monitor, likely from steroids Attestations Medical Necessity Statement*: Patient requires hospitalization for acute CVA, inpatient, greater than 2 midnights Diagnoses Acute CVA (cerebrovascular accident) I63.9 Tobacco use Z72.0 Encounter for smoking cessation counseling Z71.6 Goals of care, counseling/discussion Z71.89
--- NOTE | 2023-01-26 12:40 | PM.CONSULT ---
Providers/Reason For Consult Consulting Physician/Specialty*: Rich Moise MD Neurology and Epilepsy Reason for Consult*: Recurrent TIAs and strokes Primary Care Provider: Karon Bryant NP History of Present Illness History of Present Illness Chiki Dennis is a 57 year old male with a history of hypertension and hyperlipidemia. According to the patient, for the past 3 weeks he has been experiencing recurrent episodic right leg weakness lasting for 1 to 5 minutes. But, last evening on 01/25/2023 at around 11:30 AM he experienced complete loss of movement in the right leg with continued complaints of right leg weakness although the right leg weakness has improved. The patient also stated that 3 weeks ago he experienced speech difficulty that lasted for 3 days and resolved. The patient also stated that he experienced right upper extremity weakness in the night of 01/25/2023 with inability to move the right arm but the symptoms resolved in the emergency room when he presented for evaluation today. In view of the patient's long of symptoms that started weeks prior to presenting to the [facility] emergency room on 01/26/2023, no code stroke was initiated and the patient was not a candidate for tPA. The patient also reports that approximately 4 to 5 weeks ago he and his family were on vacation and he sustained a tick bite on his left lower back. According to the family they tried rubbing alcohol and other measures to try to did get out the tick but the head of the tick they could not remove and the family thinks that the head of the tick is still in the patient's left lower back region. In the [facility] emergency room on 01/26/2023 the patient underwent metabolic lab which revealed elevated white count 14.7, toxicology screen revealing positive for marijuana and noncontrast head CT which was reported to reveal the following: Chronic age-related changes with possible old white matter infarcts and old left posterior parietal high qureshi matter infarct.? No intracranial hemorrhage. Past medical history: Hypertension Hyperlipidemia Drug allergies: None Current Home medications Lisinopril 20 mg p.o. daily Lipitor 20 mg p.o. q. evening Habits: The patient smokes 1 pack/day for the last 40 years Family history: Remarkable for a mother who experienced a mini stroke in her father who had heart disease and underwent coronary artery bypass Review of Systems General: Reports: 10 or more systems reviewed and unremarkable except in HPI and below Skin/Breast: Reports: pruritus, skin pain and other (Tick bite 4 to 5 weeks ago) Neuro: Reports: weakness in extremities, lack of coordination, difficulty walking and Slurred speech present Medications/Allergies Home Medications Medication Instructions Recorded Confirmed Last Taken Type atorvastatin 20 mg tablet 20 mg PO QPM 01/25/23 01/26/23 01/25/23 History lisinopril 20 mg tablet 20 mg PO QPM 01/25/23 01/26/23 01/25/23 History methocarbamol 750 mg tablet 750 mg PO TID 5 days #15 tabs 01/25/23 01/26/23 01/25/23 Rx prednisone 10 mg tablet 30 mg PO DAILY 5 days #15 tabs 01/25/23 01/26/23 01/25/23 Rx Allergies Allergy/AdvReac Type Severity Reaction Status Date / Time No Known Allergies Allergy Unverified 01/26/23 08:33 PFSH Acute PFSH: Medical History (Updated 01/26/23 @ 12:59 by Rich Moise MD) Low back pain potentially associated with radiculopathy Surgical History (Updated 01/26/23 @ 12:18 by Missael Corado MD) No pertinent past surgical history Family History (Updated 01/26/23 @ 12:18 by Missael Corado MD) Father CAD (coronary artery disease) Social History (Updated 01/26/23 @ 12:18 by Missael Corado MD) Smoking and tobacco status: current every day smoker Alcohol intake: never Substance/Drug Use: never Vitals/I&O/Wt Last Vital Signs Pulse 85 01/26/23 10:47 Resp 16 01/26/23 08:28 BP 156/81 01/26/23 10:47 Pulse Ox 97 01/26/23 10:47 O2 Del Method Room Air 01/26/23 08:28 Weight last 48 hrs Weight 207 lb Physical Exam Narrative: The patient is alert and oriented x3 speech fluent. Head normocephalic. Neck supple. Cranial nerves II through XII intact. Pupils 4 to 5 mm. Pupils equal round and reactive to light and accommodation. Extraocular movements intact. There were some horizontal nystagmus on left lateral gaze which extinguish with repeat extraocular movements. Visual kiran full via confrontation. Motor examination revealed a drift in the right upper extremity and 4/5 strength in the right leg. There was some mild ataxia in the right upper extremity and right lower extremity but patient has weakness in the right arm and right leg with drift in the right upper extremity and 4/5 strength in the right leg. Deep tendon reflexes revealed questionable right-sided hyperreflexia involving the right arm and right leg. Plantar responses were extensor on the right and flexor on the left. There was no clonus. Sensory examination was intact to touch, and pinprick. There was no obvious extinction on double sensory stimulation. Throat clear. Lungs clear. Heart regular rhythm and rate abdomen benign extremities were negative for clubbing or cyanosis. Pulses 3+ bilaterally. Data 01/26/23 09:46 01/26/23 09:46 A&P Assessment and plan (1) Acute CVA (cerebrovascular accident): Assessment: 1. 3-week history of recurrent acute strokes and transient ischemic attacks manifested as episodic right lower extremity weakness followed by continued right lower extremity weakness, speech difficulty lasting for 3 days which occurred 3 weeks prior to presenting to the [facility] emergency room and resolving, and transient right upper extremity weakness lasting for several hours beginning on the night of 01/25/2023 and resolving when the patient presented to the [facility] emergency room on 01/26/2023 hours outside of the tPA window. Findings suggestive of embolic source for stroke but will assess for carotid or vertebral artery stenosis and for hypercoagulable state 2. Tick bite on the left lower back Saturday 6 weeks ago with family's report that the head of the tick could not be removed 3. Bilateral thigh fasciculations which began recently 4. Hypertension 5. Hyperlipidemia Plan: 1. Recommend CT angiogram of the head and neck to assess for carotid or vertebral artery stenosis 2. 2D echocardiogram with bubble study to assess for embolic source for strokes 3. Lab for sedimentation rate, JOSÉ, C-reactive protein, Lyme titer, magnesium, free T4, free T3 and TSH 4. Hypercoagulable lab for protein S, protein C, Antithrombin III, prothrombin gene mutation, Leiden factor V, anticardiolipin antibody, lupus anticoagulant, and beta-2 glycoprotein 1 5. Noncontrast head MRI to further assess the reported strokes reported on noncontrast head CT and to assess for acute strokes 6. Recommend starting aspirin 325 mg p.o. daily with food first dose after hypercoagulable lab has been obtained 7. Recommend evaluating the patient to make sure that the head of the tick is still not loss and the patient's skin in his lower left lumbar and recommend treatment for tick bite which occurred approximately 4 to 5 weeks prior to presenting to the [facility] emergency room and treated for Lyme disease with the patient Lyme titer is reactive 8. Patient was educated on the potential health risks associated with smoking and encouraged to stop smoking or using any illicit drugs. 9. Agree with admitting the patient for further work-up and treatment (2) TIA (transient ischemic attack): Consult Attestations Medical Necessity Statement: The patient was evaluated by neurology for recurrent strokes and TIA's Coding Level of Care Code 72616 Diagnoses Acute CVA (cerebrovascular accident) I63.9 TIA (transient ischemic attack) G45.9 Time Spent (min) 30
[2023-01-26] MEDS: pantoprazole 40 mg SDV IVP (12:45)
[2023-01-26] MEDS: sodium chloride 0.9% 1,000 ML 125 ML IV ×2 (12:46→19:46)
[2023-01-26] MEDS: aspirin 81 mg EC Tablet PO (12:46)
[2023-01-26] MEDS: enoxaparin 40 mg/0.4 mL Syringe SUBCUT (12:46)
[2023-01-26] MEDS: iohexol 350 mg/mL 500 mL Btl (per mL) IV (13:34)
--- NOTE | 2023-01-26 13:54 | ED_ITS ---
HPI - Extremity Problem General: Chief complaint: Extremity Problem,Nontraumatic Stated complaint: lost feeling in both legs and right arm numb Time Seen by Provider: 01/26/23 08:08 PFSH ED PFSH: Medical History (Updated 01/26/23 @ 12:59 by Rich Moise MD) Low back pain potentially associated with radiculopathy Surgical History (Updated 01/26/23 @ 12:18 by Missael Corado MD) No pertinent past surgical history Family History (Updated 01/26/23 @ 12:18 by Missael Corado MD) Father CAD (coronary artery disease) Social History (Updated 01/26/23 @ 12:18 by Missael Corado MD) Smoking and tobacco status: current every day smoker Alcohol intake: never Substance/Drug Use: never Course Vital Signs: Vital signs: Vital Signs Pulse Rate 84 01/26/23 13:47 Respiratory Rate 16 01/26/23 08:28 Blood Pressure 175/74 01/26/23 13:47 Pulse Oximetry 98 01/26/23 13:47 Oxygen Delivery Me thod Room Air 01/26/23 08:28 MDM - Extremity (Nontraumatic) Lab Data 01/26/23 09:46 01/26/23 09:46 Radiology Impressions Chest X-Ray 01/26/23 08:51 IMPRESSION: No acute findings. 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 No intracranial hemorrhage. ASSESSMENT: ASPECTS ([place] Stroke Program Early CT Score) is 10. Head/Neck CTA 01/26/23 11:37 IMPRESSION: Complete occlusion of the left internal carotid artery. Patent opacified left anterior and middle cerebral arteries. IMPRESSION: 1. Complete occlusion of the left common and internal carotid arteries. 2. Focal moderate narrowing of the proximal right internal carotid artery. REFERENCES: NASCET CRITERIA. The degree of stenosis in the cervical segment of the internal carotid artery is based on NASCET criteria. Normal is no stenosis. Mild is less than 50% stenosis. Moderate is 50-69% stenosis. Severe is 70% to 99% stenosis. Total occlusion is no detectable patent lumen. ADDENDUM: 01/26/23 7715 THIS REPORT CONTAINS FINDINGS THAT MAY BE CRITICAL TO PATIENT CARE. The findings were verbally communicated via telephone conference with CLOCK MAKER ROBERTO CANTOR at 2:42 PM CDT on 01/26/2023. The findings were acknowledged and understood. Lumbar Spine CT 01/26/23 12:03 IMPRESSION: Central disc extrusion L4/5 with spinal stenosis with disc material extending to the origin of each foramina. Venous Duplex 01/26/23 12:04 IMPRESSION: No evidence of deep vein thrombosis. Laboratory Results WBC 14.7 10^3/uL (4.0-10.0) H 01/26/23 09:46 RBC 5.43 10^6/uL (4.1-5.3) H 01/26/23 09:46 Hgb 15.6 g/dL (11.7-16.6) 01/26/23 09:46 Hct 47.2 % (42.0-52.0) 01/26/23 09:46 MCV 86.9 fl (80-94) 01/26/23 09:46 MCH 28.7 pg (28.0-34.0) 01/26/23 09:46 MCHC 33.1 g/dL (30.0-36.0) 01/26/23 09:46 RDW 13.6 % (12.1-15.1) 01/26/23 09:46 Plt Count 253 10^3/cmm (130-400) 01/26/23 09:46 MPV 11.8 fL (7.4-10.4) H 01/26/23 09:46 Neut % (Auto) 69.4 % 01/26/23 09:46 Lymph % (Auto) 23.9 % 01/26/23 09:46 M[place] % (Auto) 6.1 % 01/26/23 09:46 Eos % (Auto) 0.2 % 01/26/23 09:46 Baso % (Auto) 0.1 % 01/26/23 09:46 Neut # (Auto) 10.19 10^3/uL (1.8-7.7) H 01/26/23 09:46 Lymph # (Auto) 3.5 10^3/uL (0.8-4.8) 01/26/23 09:46 Mck[place]ley # (Auto) 0.9 10^3/uL (0.2-0.9) 01/26/23 09:46 Eos # (Auto) 0.0 10^3/uL (0.0-0.8) 01/26/23 09:46 Baso # (Auto) 0.0 10^3/uL (0.0-0.1) 01/26/23 09:46 Nucleated RBC % (auto) 0 % 01/26/23 09:46 Nucleated RBCs # 0.0 /100WBC 01/26/23 09:46 PT 13.50 SECONDS (12.1-14.9) 01/26/23 09:46 INR 1.00 (0.8-1.2) 01/26/23 09:46 APTT 29.5 SECONDS (23.9-36.7) 01/26/23 09:46 Sodium 143 mmol/L (136-145) 01/26/23 09:46 Potassium 4.1 mmol/L (3.5-5.1) 01/26/23 09:46 Chloride 107 mmol/L (98-107) 01/26/23 09:46 Carbon Dioxide 23 mmol/L (22-29) 01/26/23 09:46 Anion Gap 17.1 (5-19) 01/26/23 09:46 BUN 14 mg/dL (6-20) 01/26/23 09:46 Creatinine 0.8 mg/dL (0.7-1.2) 01/26/23 09:46 GFR Calculation 99.3 mL/min (90-130) 01/26/23 09:46 Glucose 101 mg/dL (65-115) 01/26/23 09:46 POC Glucose 107 mg/dL (70-110) 01/26/23 09:37 Calculated Osmolality 297 mOsm/kg (285-295) H 01/26/23 09:46 Calcium 10.0 mg/dL (8.5-10.5) 01/26/23 09:46 Total Bilirubin 0.7 mg/dL (0.15-1.2) 01/26/23 09:46 AST 15 U/L (0-40) 01/26/23 09:46 ALT 23 U/L (0-41) 01/26/23 09:46 Alkaline Phosphatase 108 U/L (40-130) 01/26/23 09:46 Troponin T Gen 5 ng/L 12 ng/L (0-15) 01/26/23 09:46 Total Protein 7.4 g/dL (6.6-8.7) 01/26/23 09:46 Albumin 4.7 g/dL (3.5-5.2) 01/26/23 09:46 Globulin 2.7 g/dL (1.3-4.6) 01/26/23 09:46 Urine Color Yellow (Yellow) 01/26/23 10:33 Urine Appearance Clear (CLEAR) 01/26/23 10:33 Urine pH 5 (5-7) 01/26/23 10:33 Ur Specific [place] 1.020 (1.005-1.030) 01/26/23 10:33 Urine Protein Neg (Negative) 01/26/23 10:33 Urine Glucose (UA) Trace (Normal) H 01/26/23 10:33 Urine Ketones Negative (Negative) 01/26/23 10:33 Urine Blood Neg (Negative) 01/26/23 10:33 Urine Nitrate Negative (Negative) 01/26/23 10:33 Urine Bilirubin Neg (Negative) 01/26/23 10:33 Urine Urobilinogen Norm mg/dL (Negative) 01/26/23 10:33 Ur Leukocyte Esterase Negative (Negative) 01/26/23 10:33 Urine Opiates Screen Negative ng/mL (Negative) 01/26/23 10:33 Ur Barbiturates Screen Negative ng/mL (Negative) 01/26/23 10:33 Ur Phencyclidine Scrn Negative ng/mL (Negative) 01/26/23 10:33 Ur Amphetamines Screen Negative ng/mL (Negative) 01/26/23 10:33 U Benzodiazepines Scrn Negative ng/mL (Negative) 01/26/23 10:33 Urine Cocaine Screen Negative ng/mL (Negative) 01/26/23 10:33 U Marijuana (THC) Screen Positive ng/mL (Negative) H 01/26/23 10:33 Discharge Plan Discharge Patient Disposition: Admitted As Inpatient Clinical Impression: Ischemic cerebrovascular accident (CVA), Tobacco use, Marijuana use Condition: Stable Coding Level of Care Code ED Mechanical Maintenance Supervisor for Sourav Torres
[2023-01-26 15:32] LABS: Erythrocyte Sedimentation Rate 9 mm/hr (0-10)
[2023-01-26 15:43] LABS: Estmated Average Glucose 131; Hemoglobin A1C 6.2 % (4.0-6.0)
[2023-01-26 16:11] LABS: Homocysteine 10.24
[2023-01-26 16:18] LABS: Chol HDL Ratio 4.44 mg/dL (1.0-5.00); Cholesterol 142 mg/dL (0-200); HDL Cholesterol 32 mg/dL (60-100); LDL Cholesterol Calculated 86 mg/dL (50-129); LDL HDL Ratio 2.69 RATIO (0.00-3.22); Magnesium 1.8 mg/dL (1.7-2.3); NT Pro B Type Natriuretic Pept 48 pg/mL (0-125); T3 Free 3.7 PG/ML (2.0-4.4); Thyroid Stimulating Hormone 0.78 uIU/mL (0.27-4.20); Triglycerides 118 mg/dL (0-150)
[2023-01-26 16:26] LABS: Vitamin B12 449 pg/mL (232-1245)
[2023-01-26 16:32] LABS: Folate Level 10.6 ng/mL (4.5-32.2)
[2023-01-26] MEDS: clopidogrel 75 mg Tablet PO (16:55)
[2023-01-26] MEDS: aspirin 81 mg Chew Tablet PO (16:55)
[2023-01-26] MEDS: methocarbamol 500 mg Tablet PO (19:46)
[2023-01-26] MEDS: atorvastatin 40 mg Tablet PO (20:59)
[2023-01-27] VITALS (7 sets, daily range): BP systolic 139–151; BP diastolic 73–78; PULSE 58–83; RESP 16–18; TEMP 36.6–36.9; O2SAT 96–98
[2023-01-27] MEDS: sodium chloride 0.9% 1,000 ML 125 ML IV ×2 (03:52→12:22)
[2023-01-27 05:48] LABS: Basophils % 0.2 %; Eosinophils # 0.1 10^3/uL (0.0-0.8); Eosinophils % 1.1 %; Hematocrit 41.1 % (42.0-52.0); Hemoglobin 13.4 g/dL (11.7-16.6); Lymphocytes # 3.2 10^3/uL (0.8-4.8); Lymphocytes % 31.8 %; Mean Corpuscular HGB Conc 32.6 g/dL (30.0-36.0); Mean Corpuscular Hemoglobin 28.8 pg (28.0-34.0); Mean Corpuscular Volume 88.2 fl (80-94); Mean Platelet Volume 11.7 fL (7.4-10.4); Monocytes # 0.8 10^3/uL (0.2-0.9); Monocytes % 8.1 %; Neutrophils # 5.86 10^3/uL (1.8-7.7); Neutrophils % 58.5 %; Nucleated Red Blood Cells % 0 %; Platelet Count 190 10^3/cmm (130-400); Red Blood Count 4.66 10^6/uL (4.1-5.3); Red Cell Distribution Width 13.7 % (12.1-15.1)
[2023-01-27 06:22] LABS: Blood Urea Nitrogen 15 mg/dL (6-20); Carbon Dioxide 25 mmol/L (22-29); Chloride 110 mmol/L (98-107); Glomerular Filtration Rate 99.3 mL/min (90-130); Glucose 103 mg/dL (65-115); Magnesium 1.8 mg/dL (1.7-2.3); Osmolality Calculated 295 mOsm/kg (285-295); Phosphorus 3.5 mg/dL (2.5-4.5); Sodium 142 mmol/L (136-145)
[2023-01-27 06:23] LABS: Anion Gap 11.2 (5-19); Potassium 4.2 mmol/L (3.5-5.1)
[2023-01-27] MEDS: aspirin 81 mg EC Tablet PO (08:22)
[2023-01-27] MEDS: clopidogrel 75 mg Tablet PO (10:30)
[2023-01-27] MEDS: enoxaparin 40 mg/0.4 mL Syringe SUBCUT (12:21)
[2023-01-27] MEDS: pantoprazole 40 mg SDV IVP (12:21)
--- NOTE | 2023-01-27 12:59 | P.PN_ITS ---
Subjective Subjective: History of Present Illness Chiki Dennis is a 57 year old male with a history of hypertension and hyperlipidemia.?The patient presented to [facility] emergency room on 01/26/2023 reporting a for a 3 weeks history of experiencing recurrent episodic right leg weakness lasting for 1 to 5 minutes.? But, on the evening of 01/25/2023 at around 11:30 PM he experienced complete loss of movement in the right leg with continued complaints of right leg weakness when he presented to the [facility] emergency room on 01/26/2023,although the right leg weakness had imp roved.? The patient also stated that 3 weeks ago he experienced speech difficulty that lasted for 3 days and resolved.? The patient also stated that he experienced right upper extremity weakness on the night of 01/25/2023 with inability to move the right arm but the symptoms resolved in the emergency room when he presented for evaluation on 01/26/2023.? In view of the patient's long duration of symptoms that started weeks prior to presenting to the [facility] emergency room on 01/26/2023, no code stroke was initiated and the patient was not a candidate for tPA.? On admission blood pressure 178/96. The patient also reported that approximately 4 to 5 weeks ago he and his family were on vacation and he sustained a tick bite on his left lower back.? According to the family they tried rubbing alcohol and other measures to try to did get out the tick but the head of the tick they could not remove and the family thinks that the head of the tick is still in the patient's left lower back r egion.? In the [facility] emergency room on 01/26/2023 the patient underwent metabolic lab which revealed elevated white count 14.7, toxicology screen revealing positive for marijuana and noncontrast head CT which was reported to reveal the following: Chronic age-related changes with possible old white matter infarcts and old left posterior parietal high qureshi matter infarct.? No intracranial hemorrhage. CT angiogram of the head and neck performed on 01/26/2023 revealed complete occlusion of the left internal carotid artery. The other vascular circulation was reported to be unremarkable. 2D echocardiogram was obtained and revealed 55 to 60% ejection fraction with no shunt on bubble study. EKG revealed no obvious arrhythmias. Lyme titer was obtained as well as hypercoagulable lab, results pending at the time of this dictation. Sedimentation rate was within normal limits at 9.0. Hemoglobin A1c was slightly elevated at 6.2. Magnesium was within normal limits at 1.8. Calcium was within normal limits at 10.0. Total cholesterol within normal limits at 142. LDL 86 which was within normal limits. HDL was decreased at 32. B12 was within normal limits at 449. Her methylmalonic acid was pending at the time of this dictation. Thyroid profile was within normal limits repeat white count on 01/27/2023 was within normal limits at 10.0. On 01/26/2023, the patient was started on aspirin and Plavix and continued on Lipitor. Today on neurological evaluation the patient was without complaints. NIH score =1. The patient had a mild drift in the right upper extremity. The remainder of his neurological examination was unrevealing. The patient was without complaints the patient is tolerating his medications without issues. Vital signs today were unremarkable with blood pressure 151/77, heart rate 81 temperature 98. The patient was requesting to go home. I spoke with the the attending physician and we discussed the patient's current condition. I informed the attending physician the patient is stable from neurological standpoint for discharge to home with home physical therapy and Occupational Therapy. The patient will be scheduled follow-up in the [facility] neurology clinic in approximately 2 weeks after discharge. Past medical history: Hypertension Hyperlipidemia Tobacco use Marijuana use Low back pain potentially associated with radiculopathy Drug allergies: None Current Home medications Lisinopril 20 mg p.o. daily Lipitor 20 mg p.o. q. evening Current hospital medications: Plavix 75 mg p.o. every morning with food Aspirin 81 mg p.o. every morning with food Lipitor 20 mg p.o. q. evening Lisinopril 20 mg p.o. daily Methocarbamol 750 mg p.o. 3 times daily Prednisone 10 mg p.o. daily for 5 days Habits: The patient smokes 1 pack/day for the last 40 years Family history: Remarkable for a mother who experienced a mini stroke, a father who had heart disease and underwent coronary artery bypass, and a paternal grandmother who experienced a stroke Review of systems: The patient denied headaches, visual difficulty, speech difficulty, dizziness, shortness of breath, abdominal pain, chest pain, ear pain, throat pain, recurre nt stroke symptoms or palpitations bruising or rectal or urinary bleeding Vitals/I&O/Wt Last Vital Signs Temp 98.0 F 01/27/23 07:48 Pulse 81 01/27/23 11:14 Resp 16 01/27/23 11:14 BP 151/77 01/27/23 07:48 Pulse Ox 96 01/27/23 11:14 O2 Del Method Room Air 01/27/23 11:14 01/26/23 01/27/23 01/27/23 22:59 06:59 14:59 Intake Total 1240 / 1240 1000 / 2240 1360 / 1360 Output Total 300 / 300 450 / 450 Balance 1240 / 1240 700 / 1940 910 / 910 Weight last 48 hrs Weight 207 lb Physical Exam Narrative: NIH score = 1 Blood pressure 151/77 heart rate 81 temperature 98 ?F The patient is alert and oriented x3. Speech fluent. Head normocephalic. Neck supple. Cranial nerves II through XII intact. Pupils 4 mm. Pupils equal round and reactive to light and accommodation. Extraocular movements intact without nystagmus. Visual kiran full via confrontation. Motor examination 5/5 except for a mild drift in the right upper extremity. [id number] and [id number] maneuvers were negative for ataxia. Sensory examination was intact to gross modalities. Throat clear. Lungs clear. Heart regular rhythm and rate without obvious murmur. Extremities were negative for clubbing cyanosis or edema Data 01/27/23 05:25 01/27/23 05:25 A&P Assessment and plan (1) Left-sided carotid artery occlusion without cerebral infarction: Impression: 1. Acute left cerebral infarction secondary to left internal carotid artery occlusion 2. Residual weakness in the right upper extremity manifested as a right pronator drift 3. Hyperlipidemia treated with Lipitor 4. Hypertension treated with lisinopril 5. Tobacco use 6. History of tick bite and reports of inability to remove the head of the tick (this was evaluated by the ER physician on 01/26/2023) Plan: 1. Patient stable from neurological standpoint for discharge planning. Please schedule patient for follow-up in the [facility] neurology clinic in 2 weeks after discharge 2. Agree with outpatient physical therapy and Occupational Therapy for right upper extremity drift and reports of some unsteadiness on his feet when attempting to ambulate 3. Continue Plavix 75 mg p.o. every morning with aspirin 81 mg p.o. every morning with food for stroke prophylaxis as tolerated 4. Continue Lipitor for history of hyperlipidemia and per stroke protocol as tolerated 5. Agree with education regarding potential health risks associated with toba partner cco and marijuana use 6. Follow-up results of Lyme titer 7. Follow-up results of hypercoagulable lab, methylmalonic acid, and C-reactive protein 8. Recommend obtaining lab for FTA antibody and RPR to assess for treatable causes of cerebrovascular occlusion 9. Recommend obtaining noncontrast head MRI to further assess the findings reported on head CT regarding strokes (2) Occlusion of left internal carotid artery: Attestations Medical Necessity Statement*: The patient was evaluated by neurology for acute stroke and left ICA occlusion Coding Level of Care Code 71701 Diagnoses Left-sided carotid artery occlusion without cerebral infarction I65.22 Occlusion of left internal carotid artery I65.22 Time Spent (min) 20
--- NOTE | 2023-01-27 13:06 | PM.DCS ---
Discharge Providers Date of Admission: 01/26/23 12:04 Date of Discharge: January 27, 2023 Attending Provider at Admission: Missael Corado MD Attending Provider at Discharge: Missael Corado MD Primary Care Provider: Karon Bryant NP Diagnoses at Discharge Discharge Diagnosis (1) Acute CVA (cerebrovascular accident): Status: Resolved (2) TIA (transient ischemic attack): Status: Resolved Reason for Visit Reason for Visit: lost feeling in both legs and right arm numb Hospital Course Hospital Course Chiki Dennis is a 57 year old male with a past medical history of hyperlipidemia, hypertension, smoker, who presents to [facility] due to right upper extremity weakness, right lower extremity weakness, slurring of his words, imbalance.? Patient tells me that roughly 4 weeks ago he had a 3-day stretch in which she had productive aphasia, word finding difficulty, it was intermittent, it lasted for roughly 3 days.? 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 He tells me that a few days ago he started to notice that he developed right lower extremity weakness, it felt as if his right lower extremity was weak, had trouble coordinating, he could stand on it, but if felt weak, had trouble coordinating, does not report any paresthesias.? Denies any back pain, no sciatica, no urinary or bowel incontinence no saddle apparent and anesthesia.? So he saw his primary care provider who started him on prednisone and a muscle laxer for his pain.? He tells me that in the evening time, he noticed that his right lower extremity completely went he tells me, he had complete weakness of his right lower extremity, and lack of sensation in his right lower extremity, trouble coordinating.? He actually knocked Ch to seek medical attention, however the wait was so long.? He tells me in the morning time he started to develop right upper extremity weakness, trouble coordinating, but now the right upper extremity weakness has significantly resolved to some degree continues to have trouble coordinating the right upper extremity, still some degree of weakness.? He tells me that right now his right lower extremity weakness is significant trouble coordinating, he tells me right now it completely feels .? Currently his NIH stroke scale is 6, he is out of tPA window, onset of symptoms at least for the right upper extremity or this morning, roughly at 7, the symptoms for the right lower extremity have been ongoing for the last few days.? Currently alert and oriented x3, following all commands, family members at bedside Patient had CTA head and neck performed CT/CT angio headneck* [id number] IMPRESSION: Complete occlusion of the left internal carotid artery. Patent opacified left anterior and middle cerebral arteries. ? ? IMPRESSION: 1. ? Complete occlusion of the left common and internal carotid arteries. 2. ? Focal moderate narrowing of the proximal right internal carotid artery. -These findings were discussed with vascular surgery at [facility] by ER provider, vascular surgery at [facility] recommended that there was no surgical intervention for 100% occlusion, however the right internal carotid artery is of concern and needs to be follow-up with vascular surgery as outpatient, recommended medical management -Patient was admitted to [facility] for acute CVA, secondary to complete occlusion of the left internal carotid artery, received fluids, permissive hypertension, aspirin, Plavix and clinically monitored. Overall patient symptomatology significantly improved, no productive aphasia, receptive aphasia no facial droop right upper extremity strength was back to baseline, his right lower extremity strength and numbness have significantly improved, he still requires some assistance with ambulation, seen by physical therapy, discharged home with home exercise program and outpatient physical therapy when appropriate.discharge with aspirin, Plavix, he still within the window for permissive hypertension, resume his home blood pressure medication tomorrow, follow-up with vascular surgery as outpatient, follow-up with neurology as outpatient, if any recurrent strokelike symptoms to call 911 immediately, and to absolutely stop smoking -please monitor your blood pressure, see your primary care tomorrow for blood pressure check -hold all blood pressure medications for today -please continue lisinopril tomorrow -if your SBP>180 or DBP>100, take clonidine as prescribed tomorrow -please take aspirin and plavix as prescribed -donot stop taking unless told otherwise -if you develop bloody or black stools go to the emergency room -if you have recurrent stroke like symptoms call 911 right away -please talk to primary care doctor about your prediabetes, and starting metformin -please start low fat, Mediterranean deit -see vascular surgery in 1 week -see neurology in 2 weeks -Stop smoking Physical Exam Const: COMMON NORMALS: no acute distress and patient oriented x3 Resp: COMMON NORMALS: normal respiratory effort, No retractions, No use of accessory muscles and clear to auscultation bilaterally AUSCULTATION: clear to auscultation bilaterally Cardio: COMMON NORMALS: regular rate, regular rhythm, S1 normal heart sound present and S2 normal heart sound present RATE: regular rate RHYTHM: regular rhythm HEART SOUNDS: S1 normal heart sound present and S2 normal heart sound present GI: COMMON NORMALS: Normal to inspection, nondistended, normoactive bowel sounds present and non-tender Extremity: COMMON NORMALS: no pedal edema Neuro: COMMON NORMALS: patient oriented x3, CN's II-XII intact bilaterally, moves all extremities, no focal motor deficits and no sensory deficits noted; negative for gait normal Psych: COMMON NORMALS: mental status grossly normal Discharge Data Studies Completed and Pending Completed Studies During Hospitalization Category Date Time Status CT angio head neck [CT angio headneck* [id number]] Cat Scan 01/26/23 11:[address] head thrombolytic [id number] Stat Cat Scan 01/26/23 08:[address] lumbar spine wo con* [id number] Stat Cat Scan 01/26/23 12:03 Completed XR chest 1V portable [id number] Stat Exams 01/26/23 08:51 [place] [id number] Stat Ultrasound 01/26/23 12:04 Completed CV. echo w/w bubble cont [id number] Stat Ultrasound 01/26/23 11:37 Completed Pending at discharge Category Date Time Status [place] [place] Stat Lab 01/26/23 14:45 Received Antithrombin III Activity Routine Lab 01/26/23 14:45 Received B2 Glycoprotein I IGM AB Routine Lab 01/26/23 14:45 Received Basic Metabolic Panel AM LABS Lab 01/28/23 04:00 Ordered Basic Metabolic Panel AM LABS Lab 01/29/23 04:00 Ordered CARDIOLIPIN AB (IGA,IGG,IGM) Stat Lab 01/26/23 14:45 Received Complete Blood Count w/Auto AM LABS Lab 01/28/23 04:00 Ordered Complete Blood Count w/Auto AM LABS Lab 01/29/23 04:00 Ordered Factor 5 Leiden Mutation Stat Lab 01/26/23 14:45 Received MMA [Methylmalonic Acid] Stat Lab 01/26/23 14:45 Received Magnesium AM LABS Lab 01/28/23 04:00 Ordered Magnesium AM LABS Lab 01/29/23 04:00 Ordered Miscellaneous Test Routine Lab 01/26/23 14:45 Received PROTHROMBIN GENE [PROTHROMBIN (FACTOR II) [id number]] Stat Lab 01/26/23 14:45 Received Phosphorus AM LABS Lab 01/28/23 04:00 Ordered Phosphorus AM LABS Lab 01/29/23 04:00 Ordered Tick Panel Stat Lab 01/26/23 14:45 Received Radiology Impressions Chest X-Ray 01/26/23 08:51 IMPRESSION: No acute findings. 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 No intracranial hemorrhage. ASSESSMENT: ASPECTS ([place] Stroke Program Early CT Score) is 10. Head/Neck CTA 01/26/23 11:37 IMPRESSION: Complete occlusion of the left internal carotid artery. Patent opacified left anterior and middle cerebral arteries. IMPRESSION: 1. Complete occlusion of the left common and internal carotid arteries. 2. Focal moderate narrowing of the proximal right internal carotid artery. REFERENCES: NASCET CRITERIA. The degree of stenosis in the cervical segment of the internal carotid artery is based on NASCET criteria. Normal is no stenosis. Mild is less than 50% stenosis. Moderate is 50-69% stenosis. Severe is 70% to 99% stenosis. Total occlusion is no detectable patent lumen. ADDENDUM: 01/26/23 1444 THIS REPORT CONTAINS FINDINGS THAT MAY BE CRITICAL TO PATIENT CARE. The findings were verbally communicated via telephone conference with ROBERTO FRITZ at 2:42 PM CDT on 01/26/2023. The findings were acknowledged and understood. Lumbar Spine CT 01/26/23 12:03 IMPRESSION: Central disc extrusion L4/5 with spinal stenosis with disc material extending to the origin of each foramina. Venous Duplex 01/26/23 12:04 IMPRESSION: No evidence of deep vein thrombosis. Laboratory Results WBC 10.0 10^3/uL (4.0-10.0) 01/27/23 05:25 RBC 4.66 10^6/uL (4.1-5.3) 01/27/23 05:25 Hgb 13.4 g/dL (11.7-16.6) 01/27/23 05:25 Hct 41.1 % (42.0-52.0) L 01/27/23 05:25 MCV 88.2 fl (80-94) 01/27/23 05:25 MCH 28.8 pg (28.0-34.0) 01/27/23 05:25 MCHC 32.6 g/dL (30.0-36.0) 01/27/23 05:25 RDW 13.7 % (12.1-15.1) 01/27/23 05:25 Plt Count 190 10^3/cmm (130-400) 01/27/23 05:25 MPV 11.7 fL (7.4-10.4) H 01/27/23 05:25 Neut % (Auto) 58.5 % 01/27/23 05:25 Lymph % (Auto) 31.8 % 01/27/23 05:25 [place] % (Auto) 8.1 % 01/27/23 05:25 Eos % (Auto) 1.1 % 01/27/23 05:25 Baso % (Auto) 0.2 % 01/27/23 05:25 Neut # (Auto) 5.86 10^3/uL (1.8-7.7) 01/27/23 05:25 Lymph # (Auto) 3.2 10^3/uL (0.8-4.8) 01/27/23 05:25 [place] # (Auto) 0.8 10^3/uL (0.2-0.9) 01/27/23 05:25 Eos # (Auto) 0.1 10^3/uL (0.0-0.8) 01/27/23 05:25 Baso # (Auto) 0.0 10^3/uL (0.0-0.1) 01/27/23 05:25 Nucleated RBC % (auto) 0 % 01/27/23 05:25 Nucleated RBCs # 0.0 /100WBC 01/27/23 05:25 ESR 9 mm/hr (0-10) 01/26/23 14:45 PT 13.50 SECONDS (12.1-14.9) 01/26/23 09:46 INR 1.00 (0.8-1.2) 01/26/23 09:46 APTT 29.5 SECONDS (23.9-36.7) 01/26/23 09:46 Sodium 142 mmol/L (136-145) 01/27/23 05:25 Potassium 4.2 mmol/L (3.5-5.1) 01/27/23 05:25 Chloride 110 mmol/L (98-107) H 01/27/23 05:25 Carbon Dioxide 25 mmol/L (22-29) 01/27/23 05:25 Anion Gap 11.2 (5-19) 01/27/23 05:25 BUN 15 mg/dL (6-20) 01/27/23 05:25 Creatinine 0.8 mg/dL (0.7-1.2) 01/27/23 05:25 GFR Calculation 99.3 mL/min (90-130) 01/27/23 05:25 Glucose 103 mg/dL (65-115) 01/27/23 05:25 POC Glucose 107 mg/dL (70-110) 01/26/23 09:37 Estimat Average Glucose 131 01/26/23 14:45 Hemoglobin A1c 6.2 % (4.0-6.0) H 01/26/23 14:45 Calculated Osmolality 295 mOsm/kg (285-295) 01/27/23 05:25 Calcium 9.0 mg/dL (8.5-10.5) 01/27/23 05:25 Phosphorus 3.5 mg/dL (2.5-4.5) 01/27/23 05:25 Magnesium 1.8 mg/dL (1.7-2.3) 01/27/23 05:25 Total Bilirubin 0.7 mg/dL (0.15-1.2) 01/26/23 09:46 AST 15 U/L (0-40) 01/26/23 09:46 ALT 23 U/L (0-41) 01/26/23 09:46 Alkaline Phosphatase 108 U/L (40-130) 01/26/23 09:46 Troponin T Gen 5 ng/L 12 ng/L (0-15) 01/26/23 09:46 C-Reactive Protein 3.0 mg/L (0.0-4.9) 01/26/23 14:45 NT-Pro-B Natriuret Pep 48 pg/mL (0-125) 01/26/23 14:45 Total Protein 7.4 g/dL (6.6-8.7) 01/26/23 09:46 Albumin 4.7 g/dL (3.5-5.2) 01/26/23 09:46 Globulin 2.7 g/dL (1.3-4.6) 01/26/23 09:46 Triglycerides 118 mg/dL (0-150) 01/26/23 14:45 Cholesterol 142 mg/dL (0-200) 01/26/23 14:45 LDL Cholesterol, Calc 86 mg/dL (50-129) 01/26/23 14:45 HDL Cholesterol 32 mg/dL (60-100) L 01/26/23 14:45 LDL/HDL Ratio 2.69 RATIO (0.00-3.22) 01/26/23 14:45 Cholesterol/HDL Ratio 4.44 mg/dL (1.0-5.00) 01/26/23 14:45 Vitamin B12 449 pg/mL (232-1245) 01/26/23 14:45 Folate 10.6 ng/mL (4.5-32.2) 01/26/23 14:45 Homocysteine 10.24 01/26/23 14:45 TSH 0.78 uIU/mL (0.27-4.20) 01/26/23 14:45 Free T4 1.40 ng/dL (0.82-1.77) 01/26/23 14:45 Free T3 3.7 PG/ML (2.0-4.4) 01/26/23 14:45 Urine Color Yellow (Yellow) 01/26/23 10:33 Urine Appearance Clear (CLEAR) 01/26/23 10:33 Urine pH 5 (5-7) 01/26/23 10:33 Ur Specific [place] 1.020 (1.005-1.030) 01/26/23 10:33 Urine Protein Neg (Negative) 01/26/23 10:33 Urine Glucose (UA) Trace (Normal) H 01/26/23 10:33 Urine Ketones Negative (Negative) 01/26/23 10:33 Urine Blood Neg (Negative) 01/26/23 10:33 Urine Nitrate Negative (Negative) 01/26/23 10:33 Urine Bilirubin Neg (Negative) 01/26/23 10:33 Urine Urobilinogen Norm mg/dL (Negative) 01/26/23 10:33 Ur Leukocyte Esterase Negative (Negative) 01/26/23 10:33 Urine Opiates Screen Negative ng/mL (Negative) 01/26/23 10:33 Ur Barbiturates Screen Negative ng/mL (Negative) 01/26/23 10:33 Ur Phencyclidine Scrn Negative ng/mL (Negative) 01/26/23 10:33 Ur Amphetamines Screen Negative ng/mL (Negative) 01/26/23 10:33 U Benzodiazepines Scrn Negative ng/mL (Negative) 01/26/23 10:33 Urine Cocaine Screen Negative ng/mL (Negative) 01/26/23 10:33 U Marijuana (THC) Screen Positive ng/mL (Negative) H 01/26/23 10:33 Vitals Last Vital Signs Temp 98.0 F 01/27/23 07:48 Pulse 81 01/27/23 11:14 Resp 16 01/27/23 11:14 BP 151/77 01/27/23 07:48 Pulse Ox 96 01/27/23 11:14 O2 Del Method Room Air 01/27/23 11:14 Discharge Plan Discharge Patient Disposition: Home Condition: Stable Prescriptions: New aspirin 81 mg Tablet,Delayed Release (Dr/Ec) 81 mg PO DAILY 30 Days Qty: 30 0RF atorvastatin 40 mg Tablet 40 mg PO BEDTIME 30 Days Qty: 30 0RF clopidogrel 75 mg Tablet 75 mg PO DAILY 30 Days Qty: 30 0RF clonidine HCl 0.1 mg tablet 0.1 mg PO DAILY PRN (Reason: hypertensive emergency) 30 Days Qty: 30 0RF Rx Instructions: for sbp>180 or dbp>100 Continued lisinopril 20 mg tablet 20 mg PO QPM methocarbamol 750 mg tablet 750 mg PO TID 5 Days Qty: 15 0RF Discontinued atorvastatin 20 mg tablet 20 mg PO QPM prednisone 10 mg tablet 30 mg PO DAILY 5 Days Qty: 15 0RF Discharge Orders: Discharge Order (Routine); Ordered 01/27/23 Ordered By: Missael Corado Other Ambulatory Orders: DME: Walker (Order) Location: None Selected Ordered By: Missael Corado Occupational Therapy Eval and Treat Outpatient (Order) Timeframe: 2 Days Facility: [facility] - Location: Occupational Therapy [facility] Ordered By: Missael Corado Physical Therapy Eval and Treat Outpatient (Order) Timeframe: 2 Days Facility: [facility] - Location: Physical Therapy [facility] Ordered By: Missael Corado Speech Language Pathology Eval and Treat Outpatient (Order) Timeframe: 2 Days Facility: [facility] - Location: OT [facility] [employer] [facility] Ordered By: Missael Corado Referrals: Karon Bryant NP [Primary Care Provider] - 1-3 days (Please call saturday to schedule a follow up appointment with Karon Bryant.) Rich Moise MD [Physician] - 2 weeks (Message sent to clinic.) Neal Koehler MD [Referring] - 1 week (carotid artery stenosis) Discharge Diet: Regular Discharge Activity: Resume usual activity Patient Instructions: How to Stop Smoking (DC), Low Fat Diet (ED), Cigarette Smoking and Your Health (GEN), Carotid Artery Disease (DC), Ischemic Stroke (DC), Carotid Artery Stent Placement (DC), Embolectomy (DC), Carotid Endarterectomy (DC), Opioid Safety, Quitting Smoking Activity Restrictions/Additional Instructions: -please monitor your blood pressure, see your primary care tomorrow for blood pressure check -hold all blood pressure medications for today -please continue lisinopril tomorrow -if your SBP>180 or DBP>100, take clonidine as prescribed tomorrow -please take aspirin and plavix as prescribed -donot stop taking unless told otherwise -if you develop bloody or black stools go to the emergency room -if you have recurrent stroke like symptoms call 911 right away -please talk to primary care doctor about your prediabetes, and starting metformin -please start low fat, Mediterranean deit -see vascular surgery in 1 week -see neurology in 2 weeks Discharge Attestations Time Spent in Discharge Care*: greater than 30 min Quality Metrics Clinical Quality Measures [ Cerebrovascular Accident { Contraindication to Antithrombotic: None; antithrombotic prescribed; Contraindication to Anticoagulation: Overlap treatment not indicated; Contraindication to Statin: None; Statin prescribed;}] Coding Level of Care Code 22643 Total time (in minutes) for Discharge: 50 Diagnoses Acute CVA (cerebrovascular accident) I63.9 TIA (transient ischemic attack) G45.9
[2023-01-29 12:25] LABS: RPR w(Moniotor) w/REFL Titer NON-REACTIVE (NON-REACTIVE)
[2023-01-29 14:08] LABS: Lyme AB Screen <0.90 index
[2023-01-30 07:13] LABS: CARDIOLIPIN AB (IGA) <2.0 APL-U/mL; CARDIOLIPIN AB (IGG) <2.0 GPL-U/mL; CARDIOLIPIN AB (IGM) <2.0 MPL-U/mL
[2023-01-30 07:58] LABS: Treponema pallidum Ab NON-REACTIVE (NON-REACTIVE)
[2023-01-30 08:48] LABS: Anti-Double Strand DNA AB 1 IU/mL; Jo-1 Antibody <1.0 NEG AI (<1.0 NEG); SM/RNP Antibodies <1.0 NEG AI (<1.0 NEG); SS-B/LA IGG <1.0 NEG AI (<1.0 NEG); Scleroderma Ab(Scl-70) Ab <1.0 NEG AI (<1.0 NEG); Ss-A/Ro Igg <1.0 NEG AI (<1.0 NEG)
[2023-01-31 01:59] LABS: B2 Glycoprotein I IGM AB 2.2 U/mL
[2023-01-31 18:10] LABS: Factor 5 Leiden Mutation NEGATIVE
[2023-01-31 23:10] LABS: Methylmalonic Acid 86 nmol/L (87-318)
[2023-02-01 17:10] LABS: RMSF IGG NOT DETECTED; RMSF IGM NOT DETECTED
[2023-02-01 21:19] LABS: E. Chaffeensis AB IGG <1:64; E. Chaffeensis AB IGM <1:20
[2023-02-02 19:40] LABS: PROTHROMBIN (FACTOR II) 20210G NEGATIVE
== END 2023-01-27 15:03 | disposition home or self-care (01) | DRG 65 ==
LOC: ER 15:06 → MEDSURG 16:34
PROVIDERS: Psychiatry & Neurology Neurology; Admitting Provider Family Medicine; Emergency Provider Nurse Practitioner; PCP Nurse Practitioner; Visit Provider Family Medicine
DX: I63.232 Cerebral infarction due to unspecified occlusion or stenosis of left carotid arteries (principal); G81.91 Hemiplegia, unspecified affecting right dominant side; R26.0 Ataxic gait; R47.81 Slurred speech; R29.706 NIHSS score 6; E78.5 Hyperlipidemia, unspecified; I10 Essential (primary) hypertension; F17.200 Nicotine dependence, unspecified, uncomplicated; F12.90 Cannabis use, unspecified, uncomplicated; Z82.49 Family history of ischemic heart disease and other diseases of the circulatory system; M54.16 Radiculopathy, lumbar region
CPT/HCPCS: 36415; 36416; 70450; 70496; 70498; 71045; 72131; 80048; 80053; 80061; 80306; 81003; 81241; 82607; 82746; 82962; 83036; 83090; 83735; 83880; 83921; 84100; 84439; 84443; 84481; 84484; 85025; 85210; 85300; 85303; 85306; 85307; 85610; 85651; 85730; 86140; 86146; 86147; 86225; 86235; 86592; 86618; 86666; 86757; 86780; 92523; 92610; 93005; 93970; 94664; 96361; 96372; 96374; 97110; 97116; 97161; 99285; C8929; C9113; J1650; J7030; Q9967

== ENCOUNTER 2023-02-04 06:00 | Outpatient (RCR) | payer BC, SELFPAY | END 2023-02-04 23:59 | disposition home or self-care (01) | LOC: MR3 06:00 | PROVIDERS: Visit Provider Family Medicine | DX: I63.9 Cerebral infarction, unspecified (principal) | CPT/HCPCS: 97110; 97112; 97162; 97166 ==

== ENCOUNTER 2023-02-05 10:12 | Outpatient (RCR) | payer BC, SELFPAY | END 2023-03-07 23:59 | disposition home or self-care (01) | LOC: MR3 10:12 | PROVIDERS: Visit Provider Family Medicine | DX: I63.9 Cerebral infarction, unspecified (principal) | CPT/HCPCS: 92507; 92523; 97110; 97112; 97530 ==

== ENCOUNTER → 2023-10-15 11:14 | Outpatient (BNVA) | payer BC, SELFPAY | PROVIDERS: Visit Provider Nurse Practitioner | DX: R25.2 Cramp and spasm (principal) | CPT/HCPCS: 80053; 83036; 83735 ==

== ENCOUNTER 2023-10-18 16:14 | Emergency (ER) | payer BC, SELFPAY ==
[2023-10-18 16:20] VITALS: BP 189/115; PULSE 103; RESP 18; TEMP 36.6; O2SAT 96
[2023-10-18 16:23] LABS: Glucose Point of Care > 600 mg/dL (70-110)
[2023-10-18 16:42] LABS: Glucose Point of Care 510 mg/dL (70-110)
--- NOTE | 2023-10-18 16:44 | W.ED.GENADLT ---
HPI - General Adult General: Chief complaint: General Medical Stated complaint: high blood sugar Time Seen by Provider: 10/18/23 16:31 History of Present Illness: 58-year-old man with a history of CVA, hypertension and hyperlipidemia with what he thought was borderline diabetes who presents the emergency room with hyperglycemia. He had labs drawn in clinic and had gone to the patient portal to check in his glucose was elevated. He checked it at home and it was too high to read. He called his clinic and they told him to come to the emergency room. When he first found out several months ago that he might have diabetes he started on metformin and took it for couple days but was so nauseous and woozy feeling that he stopped taking it. His only symptom recently has been polyuria and polydipsia. No fevers. No cough. No altered mental status. He appears alert and oriented on exam. Review of Systems Narrative: Constitutional symptoms: Negative except as documented in HPI. Skin symptoms: Negative except as documented in HPI. Eye symptoms: Negative except as documented in HPI. ENMT symptoms: Negative except as documented in HPI. Respiratory symptoms: Negative except as documented in HPI. Cardiovascular symptoms: Negative except as documented in HPI. Gastrointestinal symptoms: Negative except as documented in HPI. Genitourinary symptoms: Negative except as documented in HPI. Musculoskeletal symptoms: Negative except as documented in HPI. Neurologic symptoms: Negative except as documented in HPI. Psychiatric symptoms: Negative except as documented in HPI. Endocrine symptoms: Negative except as documented in HPI. [facility] ED PFSH: Medical History Low back pain potentially associated with radiculopathy Surgical History No pertinent past surgical history Family History Father CAD (coronary artery disease) Social History Smoking and tobacco/nicotine status: current every day tobacco/nicotine user Alcohol intake: never Substance/Drug Use: never Physical Exam Narrative: EXAM NARRATIVE: General: Alert, no acute distress. Skin: Warm, dry. Head: Normocephalic, atraumatic. Neck: Supple, trachea midline. Eye: Extraocular movements are intact. Ears, nose, mouth and throat: mucosa moist. Cardiovascular: Regular, Normal peripheral perfusion. Respiratory: Lungs are clear to auscultation, respirations are non-labored, breath sounds are equal, Symmetrical chest wall expansion. Gastrointestinal: Soft, Nontender, Non distended, Normal bowel sounds. Musculoskeletal: Normal ROM, no deformity. Neurological: Alert and oriented, No focal neurological deficit observed. Psychiatric: Cooperative, appropriate mood & affect. Course Vital Signs: Vital signs: Vital Signs Temperature 97.9 F 10/18/23 16:20 Pulse Rate 103 H 10/18/23 16:20 Respiratory Rate 18 10/18/23 16:20 Blood Pressure 189/115 10/18/23 16:20 Pulse Oximetry 96 10/18/23 16:20 Oxygen Delivery Me thod Room Air 10/18/23 16:20 MDM - General Adult Medical Decision Making Medical decision making: Differential diagnosis including but not limited to and based on the above HPI, review of systems and physical exam: In this patient with hyperglycemia and previously undiagnosed diabetes would have concern for dehydration and renal failure, ketoacidosis. Also checking an A1c. Orders placed to evaluate differential diagnosis based on the above differential, HPI and physical exam Lab Review: Laboratory results were reviewed and interpreted by myself the emergency room physician. Patient is quite hyperglycemic at over 600 initially. BUN and creatinine are appropriate at 19 and 0.8. No leukocytosis, white count is 9. Hemoglobin is 15.7. Urinalysis is negative. Hemoglobin A1c: 11.7% AB.4 no acidosis. Ketones are negative. Reexamination: Patient remained stable. No altered mental status. No increased work of breathing. No confusion. He states he wants to go home. Lab Data 10/18/23 16:35 10/18/23 16:35 Laboratory Results WBC 9.21 10^3/uL (3.29-11.43) 10/18/23 16:35 RBC 5.54 10^6/uL (3.85-5.65) 10/18/23 16:35 Hgb 15.70 g/dL (11.27-16.99) 10/18/23 16:35 Hct 46.6 % (37-53) 10/18/23 16:35 MCV 84.1 fl (82-101) 10/18/23 16:35 MCH 28.3 pg (27-33) 10/18/23 16:35 MCHC 33.7 g/dL (30-55) 10/18/23 16:35 RDW 12.2 % (12.1-15.1) 10/18/23 16:35 Plt Count 241 10^3/cmm (157-399) 10/18/23 16:35 MPV 12.0 fL (7.4-10.4) H 10/18/23 16:35 Neut % (Auto) 59.3 % 10/18/23 16:35 Lymph % (Auto) 32.8 % 10/18/23 16:35 Isabela % (Auto) 6.0 % 10/18/23 16:35 Eos % (Auto) 1.3 % 10/18/23 16:35 Baso % (Auto) 0.2 % 10/18/23 16:35 Neut # (Auto) 5.46 10^3/uL (1.8-7.7) 10/18/23 16:35 Lymph # (Auto) 3.0 10^3/uL (0.8-4.8) 10/18/23 16:35 Isabela # (Auto) 0.6 10^3/uL (0.2-0.9) 10/18/23 16:35 Eos # (Auto) 0.1 10^3/uL (0.0-0.8) 10/18/23 16:35 Baso # (Auto) 0.0 10^3/uL (0.0-0.1) 10/18/23 16:35 Nucleated RBC % (auto) 0 % 10/18/23 16:35 Nucleated RBCs # 0.0 /100WBC 10/18/23 16:35 Specimen Type Arterial 10/18/23 16:36 Sample Site Radial, right 10/18/23 16:36 ABG pH 7.42 (7.35-7.45) 10/18/23 16:36 ABG pCO2 39.2 mmHg (35-45) 10/18/23 16:36 ABG pO2 81.3 mmHg (80.0-100.0) 10/18/23 16:36 ABG PO2/FiO2 Ratio 0 10/18/23 16:36 ABG HCO3 25.7 mmol/L (22-26) 10/18/23 16:36 ABG O2 Saturation 96.5 10/18/23 16:36 ABG Base Excess 1.2 mmol/L (-2.0-2.0) 10/18/23 16:36 Devante Test Pos 10/18/23 16:36 A-a O2 Gradient 2.6 mmHg (5-10) L 10/18/23 16:36 Hematocrit 48.1 % (42-52) 10/18/23 16:36 Hgb O2 Saturation 95.7 % (95-100) 10/18/23 16:36 Carboxyhemoglobin 0.5 %THgb (0.4-20.1) 10/18/23 16:36 Methemoglobin 0.3 % (0.4-1.5) L 10/18/23 16:36 Total Hemoglobin 15.7 g/dL (14-18) 10/18/23 16:36 Sodium 134.0 mmol/L (131-143) 10/18/23 16:36 Potassium 4.1 mmol/L (3.5-5.0) 10/18/23 16:36 Glucose 534.0 mg/dL (70-115) H 10/18/23 16:36 Ionized Calcium 1.3 mmol/L (1.1-1.4) 10/18/23 16:36 O2 Delivery Device None 10/18/23 16:36 FiO2 21.0 % 10/18/23 16:36 Hospital Unit Clerk ID glc 10/18/23 16:36 Sodium 131 mmol/L (136-145) L 10/18/23 16:35 Potassium 5.2 mmol/L (3.5-5.1) H 10/18/23 16:35 Chloride 94 mmol/L (98-107) L 10/18/23 16:35 Carbon Dioxide 25 mmol/L (22-29) 10/18/23 16:35 Anion Gap 17.2 (5-19) 10/18/23 16:35 BUN 19 mg/dL (6-20) 10/18/23 16:35 Creatinine 0.8 mg/dL (0.7-1.2) 10/18/23 16:35 GFR Calculation 98.9 mL/min (90-130) 10/18/23 16:35 Glucose 530 mg/dL (65-115) H* 10/18/23 16:35 POC Glucose 425 mg/dL (70-110) H 10/18/23 18:20 Estimat Average Glucose 289 10/18/23 16:35 Hemoglobin A1c 11.7 % (4.0-6.0) H 10/18/23 16:35 Calculated Osmolality 298 mOsm/kg (285-295) H 10/18/23 16:35 Calcium 10.4 mg/dL (8.5-10.5) 10/18/23 16:35 Total Bilirubin 1.1 mg/dL (0.15-1.2) 10/18/23 16:35 AST 14 U/L (0-40) 10/18/23 16:35 ALT 30 U/L (0-41) 10/18/23 16:35 Alkaline Phosphatase 172 U/L (40-130) H 10/18/23 16:35 Total Protein 8.4 g/dL (6.6-8.7) 10/18/23 16:35 Albumin 5.0 g/dL (3.5-5.2) 10/18/23 16:35 Globulin 3.4 g/dL (1.3-4.6) 10/18/23 16:35 Urine Color Yellow (Yellow) 10/18/23 18:57 Urine Appearance Clear (CLEAR) 10/18/23 18:57 Urine pH 5 (5-7) 10/18/23 18:57 Ur Specific [place] 1.015 (1.005-1.030) 10/18/23 18:57 Urine Protein Neg (Negative) 10/18/23 18:57 Urine Glucose (UA) 4+ (Normal) H 10/18/23 18:57 Urine Ketones 1+ (Negative) H 10/18/23 18:57 Urine Blood Neg (Negative) 10/18/23 18:57 Urine Nitrate Negative (Negative) 10/18/23 18:57 Urine Bilirubin Neg (Negative) 10/18/23 18:57 Urine Urobilinogen Neg mg/dL (Negative) 10/18/23 18:57 Ur Leukocyte Esterase Negative (Negative) 10/18/23 18:57 Serum Ketones Negative (Negative) 10/18/23 16:35 No radiology studies performed this visit Other Data Assessment and plan: Type 2 diabetes mellitus Hyperglycemia Dehydration -1 L normal saline bolus, 210 unit boluses of insulin. Patient has improved -Discussed hydration and low carbohydrate diet. - Discharged home - Discussed plan with patient. Answered any questions. - Evaluation and treatment of this problem were appropriate in the emergency setting. Discharge Plan Discharge Patient Disposition: Home Clinical Impression: Hyperglycemia, Dehydration, Type 2 diabetes mellitus Condition: Stable Prescriptions: New glipizide 10 mg tablet 10 mg PO DAILY Qty: 30 0RF No Action lisinopril 20 mg tablet 20 mg PO QPM aspirin [Adult Aspirin Regimen] 81 mg tablet,delayed release (DR/EC) 81 mg PO DAILY methocarbamol 750 mg tablet 750 mg PO ONCE Qty: 90 0RF rosuvastatin 5 mg tablet 5 mg PO DAILY Qty: 30 3RF (DME) blood-glucose meter [Accu-Chek Guide Glucose Meter] Misc See Rx Instructions .Route Qty: 1 0RF Rx Instructions: Check blood glucose once a day fasting (DME) Accu-Chek Vaishnavi Plus test strp Strip See Rx Instructions .Route Qty: 100 0RF Rx Instructions: Check glucose daily (DME) lancets [Accu-Chek Fastclix Lancet Drum] Misc See Rx Instructions .Route Qty: 100 0RF Rx Instructions: Check daily Januvia 25 mg tablet 25 mg PO DAILY Qty: 30 2RF Discharge Orders: Discharge ED (Routine); Ordered 10/18/23 Ordered By: Neelam Fritz Referrals: Oralia Thompson FNP [Primary Care Provider] - (You have been screened and evaluated and felt safe for discharge. Health conditions do change or evolve sometimes and as such it is important that you follow up with your Primary Doctor to be re checked, 3-5 days is a general good time frame for follow up. 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
[2023-10-18 16:45] LABS: Basophils % 0.2 %; Eosinophils # 0.1 10^3/uL (0.0-0.8); Eosinophils % 1.3 %; Hematocrit 46.6 % (37-53); Lymphocytes % 32.8 %; Mean Corpuscular HGB Conc 33.7 g/dL (30-55); Mean Corpuscular Hemoglobin 28.3 pg (27-33); Mean Corpuscular Volume 84.1 fl (82-101); Monocytes # 0.6 10^3/uL (0.2-0.9); Neutrophils # 5.46 10^3/uL (1.8-7.7); Neutrophils % 59.3 %; Nucleated Red Blood Cells % 0 %; Platelet Count 241 10^3/cmm (157-399); Red Blood Count 5.54 10^6/uL (3.85-5.65); Red Cell Distribution Width 12.2 % (12.1-15.1); White Blood Count 9.21 10^3/uL (3.29-11.43)
[2023-10-18 16:46] LABS: ABG PCO2 39.2 mmHg (35-45); ABG PH Result 7.42 (7.35-7.45); Alveolar-Arterial Oxygen Gradi 2.6 mmHg (5-10); Arterial Blood Gas Hematocrit 48.1 % (42-52); Base Excess ABG 1.2 mmol/L (-2.0-2.0); Blood Gas Allen Test Pos; Blood Gas Operator Identificat glc; Blood Gas Sample Site Radial, right; Blood Gas Sample Type Arterial; Carboxyhemoglobin 0.5 %THgb (0.4-20.1); HCO3 ABG 25.7 mmol/L (22-26); HGB O2 Sat 95.7 % (95-100); Ionized Calcium Level - ABG 1.3 mmol/L (1.1-1.4); Methemoglobin 0.3 % (0.4-1.5); Oxygen Saturation ABG 96.5; PO2 ABG 81.3 mmHg (80.0-100.0); PO2 FiO2 Ratio Arterial Blood 0; Potassium Level - ABG 4.1 mmol/L (3.5-5.0); Total Hemoglobin 15.7 g/dL (14-18)
[2023-10-18] MEDS: sodium chloride 0.9% 1,000 ML 999 ML IV (17:00)
[2023-10-18] MEDS: insulin regular-human 100 units/1 mL 10 UNIT IVP ×2 (17:02→18:55)
[2023-10-18 17:03] LABS: Alanine Aminotransferase 30 U/L (0-41); Alkaline Phosphatase 172 U/L (40-130); Anion Gap 17.2 (5-19); Aspartate Amino Transferase 14 U/L (0-40); Blood Urea Nitrogen 19 mg/dL (6-20); Calcium 10.4 mg/dL (8.5-10.5); Carbon Dioxide 25 mmol/L (22-29); Chloride 94 mmol/L (98-107); Creatinine Clr Calc Pharmacy 122.9366; Globulin 3.4 g/dL (1.3-4.6); Glomerular Filtration Rate 98.9 mL/min (90-130); Osmolality Calculated 298 mOsm/kg (285-295); Potassium 5.2 mmol/L (3.5-5.1); Sodium 131 mmol/L (136-145); Total Bilirubin 1.1 mg/dL (0.15-1.2); Total Protein 8.4 g/dL (6.6-8.7)
[2023-10-18 17:05] LABS: Ketone (Acetest) Serum Negative (Negative)
[2023-10-18 17:06] LABS: Glucose 530 mg/dL (65-115)
[2023-10-18 17:24] LABS: Estmated Average Glucose 289; Hemoglobin A1C 11.7 % (4.0-6.0)
[2023-10-18 18:23] LABS: Glucose Point of Care 425 mg/dL (70-110)
[2023-10-18 19:07] LABS: Add Urine Microscopic? NO; Charge for UA Resulting for Rev
[2023-10-18 19:25] LABS: Bilirubin Urine Neg (Negative); Blood Urine Neg (Negative); Glucose Urine UA 4+ (Normal); Ketones Urine 1+ (Negative); Leukocyte Esterase Urine Negative (Negative); Nitrate Urine Negative (Negative); Protein Urine Neg (Negative); Specific Gravity, Urine 1.015 (1.005-1.030); Urine Appearance Clear (CLEAR); Urine Color Yellow (Yellow); Urobilinogen Urine Neg (Negative); pH Urine 5 (5-7)
[2023-10-18 20:06] LABS: Glucose Point of Care 254 mg/dL (70-110)
== END 2023-10-18 20:06 | disposition home or self-care (01) ==
PROVIDERS: Physician Assistant; Emergency Provider Emergency Medicine; PCP Nurse Practitioner
DX: E11.65 Type 2 diabetes mellitus with hyperglycemia (principal); E86.0 Dehydration; Z79.82 Long term (current) use of aspirin; Z72.0 Tobacco use; Z86.73 Personal history of transient ischemic attack (TIA), and cerebral infarction without residual deficits; I10 Essential (primary) hypertension; E78.5 Hyperlipidemia, unspecified
CPT/HCPCS: 36416; 36600; 80051; 80053; 81003; 82009; 82330; 82805; 82962; 83036; 85025; 96374; 96376; 99284; J1815; J7030

== ENCOUNTER → 2024-02-19 08:59 | Outpatient (BNVA) | payer BC, SELFPAY | PROVIDERS: PCP Nurse Practitioner; Visit Provider Nurse Practitioner | DX: E11.9 Type 2 diabetes mellitus without complications (principal) | CPT/HCPCS: 80053; 80061; 83036 ==

== ENCOUNTER 2024-06-27 09:25 | Emergency (ER) | payer BC, SELFPAY ==
[2024-06-27] VITALS (7 sets, daily range): BP systolic 163–222; BP diastolic 85–100; PULSE 87–120; RESP 17; TEMP 36.4; O2SAT 93–98; BMI 29.5
--- NOTE | 2024-06-27 10:05 | ECG_ITS ---
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 Measurements Intervals [place] Rate: 105 P: 61 VA: 167 QRS: -31 QRSD: 100 T: 61 QT: 354 QTc: 469 Interpretive Statements SINUS TACHYCARDIA LEFT AXIS DEVIATION [QRS AXIS < -30] MODERATE VOLTAGE CRITERIA FOR LVH, CONSIDER NORMAL VARIANT [MEETS CRITERIA IN ONE OF: R(aVL), S(V1), R(V5), R(V5/V6)+S(V1)] Compared to ECG 01/26/2023 09:01:40 Sinus rhythm no longer present Electronically Signed On 06-29-2024 20:22:14 SALES HOST by New Aguilar M.D. [email or web address]
--- NOTE | 2024-06-27 10:35 | W.ED.MALEGU ---
HPI - Male Genitourinary General: Chief complaint: Urogenital-Male Stated complaint: high bp Time Seen by Provider: 06/27/24 10:35 Source: patient Mode of arrival: ambulatory Limitations: no limitations History of Present Illness: Patient presents emergency department today accompanied by his for evaluation treatment of concerns for urinary tract infection. Patient states that while out of town earlier this week, began feeling like he was having a urinary tract infection. Reports urinary frequency with decreased urinary output. Patient also developed dysuria and admits to taking 1500 mg of amoxicillin the last couple of days which was purchased from the [employer] store. States that it has been 20 years since his last urinary tract infection. Patient decided to come in today due to his symptoms and, decided to check his blood pressure today as well. Noted his blood pressure was elevated but attributes it to his urinary pressure in his abdomen and dysuria when he voids. Reports he did take his lisinopril this morning. Patient also states he has been taking Azo so was unsure if he has seen any blood. Patient admits he does not check his blood sugar very often. Patient's chart review shows that since November, has had his blood pressure medication increased to lisinopril twice a day. However, his last evaluation in February showed overall improvement of his blood pressure. It is noted that his vital signs history indicate tachycardia each time he has been seen and evaluated this year save his appointment in February. Related Data Previous Rx's Medication Instructions Recorded blood sugar diagnostic (Accu-Chek #100 ea 10/17/23 Vaishnavi Plus test strips) blood-glucose meter (Accu-Chek #1 ea 10/17/23 Guide Glucose Meter) lancets (Accu-Chek Fastclix Lancet #100 ea 10/17/23 Drum) glipizide 10 mg tablet 10 mg PO DAILY #90 tabs 11/21/23 rosuvastatin 5 mg tablet 5 mg PO DAILY #30 tabs 11/21/23 aspirin 81 mg tablet,delayed 81 mg PO DAILY #90 tabs 02/19/24 release (Adult Aspirin Regimen) lisinopril 20 mg tablet 20 mg PO BID #180 tabs 02/19/24 ciprofloxacin HCl 500 mg tablet 500 mg PO Q12H 5 days #10 tabs 06/27/24 phenazopyridine 200 mg tablet 200 mg PO Q8H 6 doses #6 tabs 06/27/24 Allergies Allergy/AdvReac Type Severity Reaction Status Date / Time metformin Allergy Intermediate ADR-Nausea Verified 02/19/24 08:41 Review of Systems General: Reports: 10 or more systems reviewed and unremarkable except in HPI and below PFSH ED PFSH: Medical History Low back pain potentially associated with radiculopathy Surgical History No pertinent past surgical history Family History Father CAD (coronary artery disease) Social History Smoking and tobacco/nicotine status: never used tobacco/nicotine Alcohol intake: never Substance/Drug Use: never Physical Exam Const: COMMON NORMALS: no acute distress, average body habitus, patient oriented x3 and alert HENMT: COMMON NORMALS: normocephalic, atraumatic, hearing grossly normal bilaterally and moist oral mucous membranes HEAD & SCALP: normocephalic and atraumatic Eye: COMMON NORMALS: Equal, round and reactive pupils present, EOMs intact bilaterally and conjunctivae normal CONJUNCTIVA: Yes conjunctivae normal PUPIL: Yes Equal, round and reactive pupils present Neck/C-Spine: COMMON NORMALS: no JVD Lymph: LYMPHATIC: no lymphadenopathy noted Resp: COMMON NORMALS: normal respiratory effort, No retractions and No use of accessory muscles Cardio: COMMON NORMALS: no JVD and regular rate RATE: regular rate GI: OTHER: Abdomen is soft, tender in the suprapubic region. Normal active bowel sounds. Extremity: COMMON NORMALS: normal to inspection, full ROM and capillary refill normal Neuro: COMMON NORMALS: patient oriented x3 SENSORIUM/ORIENTATION: Yes alert Psych: COMMON NORMALS: mental status grossly normal, cooperative, normal affect, speech normal and activity/motor behavior normal SPEECH: Yes normal speech Course Vital Signs: Vital signs: Vital Signs Temperature 97.6 F 06/27/24 09:57 Pulse Rate 120 H 06/27/24 12:30 Respiratory Rate 17 06/27/24 09:57 Blood Pressure 182/95 06/27/24 12:00 Pulse Oximetry 96 06/27/24 12:30 Oxygen Delivery Me thod Room Air 06/27/24 11:00 MDM - Male Medical Decision Making Patient presents to the ER today for concerns of urinary tract infection. Patient noticed symptoms several days ago including urinary frequency, decreased urinary output, and now developing dysuria. Patient checked his blood pressure today and was found to be notably elevated though he had taken his morning blood pressure medications. He states it is because of the discomfort he is in. Bladder scan in the room upon his arrival showed only 30 to 50 cc of urine in his bladder. No signs of any acute urinary retention. Lab work today does show an elevated white blood cell count but, kidney function within normal limits. He is also afebrile without vomiting or flank pain. I do not think he exhibits any signs or symptoms of pyelonephritis at this time. However, we do need to treat for urinary tract infection. I went back in to speak to the patient, he was up and pacing around the room. I asked him if he was in pain and he indicated it was not pain so much as the constant urge to have to go to the bathroom. States he tried voiding 3 times in the last few minutes and had approximately 50 cc output of urine. I discussed with him the positive findings of urinary tract infection. Also discussed how sometimes, penicillins will not cover for specific bacteria. I would like to give him IV Rocephin here in the emergency department and we discussed Pyridium for his symptoms. He still appears incredibly uncomfortable and I offered him something for overall pain. At first, he was unsure because he indicated he thought it was just the sensation to void but, then indicated he would like to try something for pain to see if it did help. Patient was given his infusion of Rocephin, he is Pyridium, and [place]. Upon recheck, patient is relaxing in the bed and smiling. He states he feels significantly improved and the last urinary void he had was not painful. We discussed treatment. Will continue antibiotics and will wait for culture and sensitivity to determine if change in antibiotic therapy is warranted. However, explained that it is essential that he follow-up with his primary care doctor for recheck of not only his urinalysis but also his blood pressure. Patient indicated his elevated blood pressure readings today were because of his discomfort. He has had noticeable improvement of his overall blood pressure since being here and, with his treatment. At this time, as patient is totally asymptomatic of his high blood pressure-no visual changes, no chest pain no shortness of breath and no headache, will encouraged him to reach out to his primary care doctor for Blue on Saturday. However, we did discuss strict return precautions for both signs of worsening urinary infection and for elevated blood pressure readings. He verbalizes his understanding and agreement to treatment plan. Differential Diagnosis Likely urinary tract infection; Unlikely priapism, urethritis, genital herpes simplex or acute retention of urine Lab Data 06/27/24 10:44 06/27/24 10:44 Radiology Impressions Chest X-Ray 06/27/24 10:36 IMPRESSION: No acute cardiopulmonary process. Laboratory Results WBC 14.42 10^3/uL (3.29-11.43) H 06/27/24 10:44 RBC 5.09 10^6/uL (3.85-5.65) 06/27/24 10:44 Hgb 14.30 g/dL (11.27-16.99) 06/27/24 10:44 Hct 42.7 % (37-53) 06/27/24 10:44 MCV 83.9 fl (82-101) 06/27/24 10:44 MCH 28.1 pg (27-33) 06/27/24 10:44 MCHC 33.5 g/dL (30-55) 06/27/24 10:44 RDW 12.9 % (12.1-15.1) 06/27/24 10:44 Plt Count 326 10^3/cmm (157-399) 06/27/24 10:44 MPV 10.8 fL (7.4-10.4) H 06/27/24 10:44 Neut % (Auto) 78.6 % 06/27/24 10:44 Lymph % (Auto) 11.4 % 06/27/24 10:44 [place] % (Auto) 8.9 % 06/27/24 10:44 Eos % (Auto) 0.3 % 06/27/24 10:44 Baso % (Auto) 0.2 % 06/27/24 10:44 Neut # (Auto) 11.33 10^3/uL (1.8-7.7) H 06/27/24 10:44 Lymph # (Auto) 1.6 10^3/uL (0.8-4.8) 06/27/24 10:44 [place] # (Auto) 1.3 10^3/uL (0.2-0.9) H 06/27/24 10:44 Eos # (Auto) 0.1 10^3/uL (0.0-0.8) 06/27/24 10:44 Baso # (Auto) 0.0 10^3/uL (0.0-0.1) 06/27/24 10:44 Nucleated RBC % (auto) 0 % 06/27/24 10:44 Nucleated RBCs # 0.0 /100WBC 06/27/24 10:44 Sodium 140 mmol/L (136-145) 06/27/24 10:44 Potassium 3.5 mmol/L (3.5-5.1) 06/27/24 10:44 Chloride 103 mmol/L (98-107) 06/27/24 10:44 Carbon Dioxide 23 mmol/L (22-29) 06/27/24 10:44 Anion Gap 17.4 (5-19) 06/27/24 10:44 BUN 8 mg/dL (6-20) 06/27/24 10:44 Creatinine 0.8 mg/dL (0.7-1.2) 06/27/24 10:44 GFR Calculation 98.9 mL/min (90-130) 06/27/24 10:44 Glucose 150 mg/dL (65-115) H 06/27/24 10:44 Calculated Osmolality 291 mOsm/kg (285-295) 06/27/24 10:44 Calcium 9.6 mg/dL (8.5-10.5) 06/27/24 10:44 Total Bilirubin 0.7 mg/dL (0.15-1.2) 06/27/24 10:44 AST 38 U/L (0-40) 06/27/24 10:44 ALT 84 U/L (0-41) H 06/27/24 10:44 Alkaline Phosphatase 120 U/L (40-130) 06/27/24 10:44 Total Protein 7.3 g/dL (6.6-8.7) 06/27/24 10:44 Albumin 4.0 g/dL (3.5-5.2) 06/27/24 10:44 Globulin 2.9 g/dL (1.3-4.6) 06/27/24 10:44 Urine Color Dark yellow (Yellow) A 06/27/24 10:35 Urine Appearance Clear (CLEAR) 06/27/24 10:35 Urine pH 6.0 (5-7) 06/27/24 10:35 Ur Specific [place] 1.018 (1.005-1.030) 06/27/24 10:35 Urine Protein 1+ (Negative) A 06/27/24 10:35 Urine Glucose (UA) Negative (Normal) 06/27/24 10:35 Urine Ketones Negative (Negative) 06/27/24 10:35 Urine Blood Negative (Negative) 06/27/24 10:35 Urine Nitrate Positive (Negative) A 06/27/24 10:35 Urine Bilirubin 1+ (Negative) H 06/27/24 10:35 Urine Urobilinogen 1.0 mg/dL (Negative) 06/27/24 10:35 Ur Leukocyte Esterase Trace (Negative) A 06/27/24 10:35 Urine RBC 0-2 /hpf (0-2) 06/27/24 10:35 Urine WBC 11-20 /hpf (0-5) H 06/27/24 10:35 Ur Squamous Epith Cells 0-5 /hpf (0-5) 06/27/24 10:35 Amorphous Sediment Not Reportable 06/27/24 10:35 Urine Bacteria None seen /hpf (NONE) 06/27/24 10:35 Hyaline Casts 0.81 /lpf 06/27/24 10:35 No radiology studies performed this visit Discharge Plan Discharge Patient Disposition: Home Clinical Impression: Urinary tract infection, Elevated blood pressure reading with diagnosis of hypertension Condition: Stable Prescriptions: New ciprofloxacin HCl 500 mg tablet 500 mg PO Q12H 5 Days Qty: 10 0RF phenazopyridine 200 mg tablet 200 mg PO Q8H Qty: 6 0RF No Action lisinopril 20 mg tablet 20 mg PO BID Qty: 180 3RF aspirin [Adult Aspirin Regimen] 81 mg tablet,delayed release (DR/EC) 81 mg PO DAILY Qty: 90 3RF (DME) blood-glucose meter [Accu-Chek Guide Glucose Meter] Misc See Rx Instructions .Route Qty: 1 0RF Rx Instructions: Check blood glucose once a day fasting (DME) Accu-Chek Vaishnavi Plus test strp Strip See Rx Instructions .Route Qty: 100 0RF Rx Instructions: Check glucose daily (DME) lancets [Accu-Chek Fastclix Lancet Drum] Misc See Rx Instructions .Route Qty: 100 0RF Rx Instructions: Check daily glipizide 10 mg tablet 10 mg PO DAILY Qty: 90 1RF rosuvastatin 5 mg tablet 5 mg PO DAILY Qty: 30 3RF Discharge Orders: Discharge ED (Routine); Ordered 06/27/24 Ordered By: April Ervin Referrals: Oralia Thompson FNP [Primary Care Provider] - Discharge Diet: Usual diet Discharge Activity: Increase activity as tolerated Patient Instructions: Hypertension and Diabetes (ED), Urinary Tract Infection - Men Activity Restrictions/Additional Instructions: Labs today do confirm findings of a urinary tract infection. You received your first round of antibiotics through your IV and have sent a prescription to your preferred pharmacy to be picked up and started this evening. We also provided you medication to help with urinary tract discomfort. This medication can discolor your urine. Severe important that you stay well-hydrated. You did present with elevated blood pressure readings as well as an elevated heart rate. EKG was normal but, we do want you to carefully monitor your blood pressure and your heart rate at home. Take your blood pressure medications as prescribed. Your blood pressure did improve with treatment here but, if you have any return of elevated blood pressure readings or have any headache, visual change, slurred speech, one-sided facial droop, chest pain, shortness of breath need to come back to the ER. Otherwise, please contact your primary care doctor for Blue on Saturday for follow-up appointment as you need to discuss any residual elevated blood pressure readings, elevated heart rates, and you should have a repeat urinalysis after you finish your course of antibiotics to make sure all signs of infection have resolved. We are going to culture your urine over the next 48 hours to determine the bacterial cause of your infection and to assure the proper antibiotic coverage at this time. If for any reason we need to change her antibiotics we will let you know and send in a new prescription. 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
--- NOTE | 2024-06-27 10:36 | XRR_ITS ---
PROCEDURE INFORMATION: Exam: XR Chest Exam date and time: 06/27/2024 10:44 AM Age: 58 years old Clinical indication: Other: Acute elevated blood pressure; Additional info: Acute elev BP, took meds this am 222/100 TECHNIQUE: Imaging protocol: Radiologic exam of the chest. Views: 1 view. COMPARISON: CR (CHEST, ) 01/26/2023 9:20 AM FINDINGS: Lungs: Unremarkable. No consolidation. Pleural spaces: Unremarkable. No pleural effusion. No pneumothorax. Heart/Mediastinum: Unremarkable. No cardiomegaly. Bones/joints: The thoracic spine demonstrates mild degenerative changes at multiple levels. XR/XR chest 1V 10254 IMPRESSION: No acute cardiopulmonary process.
[2024-06-27 10:50] LABS: Bilirubin Urine 1+ (Negative); Blood Urine Negative (Negative); Glucose Urine UA Negative (Normal); Ketones Urine Negative (Negative); Leukocyte Esterase Urine Trace (Negative); Nitrate Urine Positive (Negative); Protein Urine 1+ (Negative); Specific Gravity, Urine 1.018 (1.005-1.030); Urine Appearance Clear (CLEAR); Urine Color Dark Yellow (Yellow)
[2024-06-27 10:51] LABS: Basophils % 0.2 %; Eosinophils # 0.1 10^3/uL (0.0-0.8); Eosinophils % 0.3 %; Hematocrit 42.7 % (37-53); Lymphocytes # 1.6 10^3/uL (0.8-4.8); Lymphocytes % 11.4 %; Mean Corpuscular HGB Conc 33.5 g/dL (30-55); Mean Corpuscular Hemoglobin 28.1 pg (27-33); Mean Corpuscular Volume 83.9 fl (82-101); Mean Platelet Volume 10.8 fL (7.4-10.4); Monocytes # 1.3 10^3/uL (0.2-0.9); Monocytes % 8.9 %; Neutrophils # 11.33 10^3/uL (1.8-7.7); Neutrophils % 78.6 %; Nucleated Red Blood Cells % 0 %; Platelet Count 326 10^3/cmm (157-399); Red Blood Count 5.09 10^6/uL (3.85-5.65); Red Cell Distribution Width 12.9 % (12.1-15.1); White Blood Count 14.42 10^3/uL (3.29-11.43)
[2024-06-27 10:52] LABS: Add Urine Microscopic? YES; Bacteria Urine None Seen /hpf; Hyaline Casts Urine 0.81 /lpf; RBC Urine 0-2 /hpf (0-2); Squamous Epithelial Cell Urine 0-5 /hpf (0-5)
[2024-06-27 10:58] LABS: Add Urine Culture? Yes
[2024-06-27 11:09] LABS: Chloride 103 mmol/L (98-107); Potassium 3.5 mmol/L (3.5-5.1); Sodium 140 mmol/L (136-145)
[2024-06-27 11:26] LABS: Alanine Aminotransferase 84 U/L (0-41); Alkaline Phosphatase 120 U/L (40-130); Anion Gap 17.4 (5-19); Aspartate Amino Transferase 38 U/L (0-40); Blood Urea Nitrogen 8 mg/dL (6-20); Calcium 9.6 mg/dL (8.5-10.5); Carbon Dioxide 23 mmol/L (22-29); Creatinine Clr Calc Pharmacy 128.0396; Globulin 2.9 g/dL (1.3-4.6); Glomerular Filtration Rate 98.9 mL/min (90-130); Glucose 150 mg/dL (65-115); Osmolality Calculated 291 mOsm/kg (285-295); Total Bilirubin 0.7 mg/dL (0.15-1.2); Total Protein 7.3 g/dL (6.6-8.7)
[2024-06-27] MEDS: sodium chloride 0.9% 500 ML IV (13:05)
[2024-06-27] MEDS: phenazopyridine 100 mg Tablet 200 MG PO (13:05)
[2024-06-27] MEDS: cefTRIAXone 1,000 mg SDV 1000 MG IVP (13:06)
[2024-06-27] MEDS: HYDROcodone-acetaminophen 5-325 mg Tablet 1 TAB PO (13:06)
== END 2024-06-27 14:21 | disposition home or self-care (01) ==
PROVIDERS: Emergency Provider Physician Assistant; PCP Nurse Practitioner
DX: N39.0 Urinary tract infection, site not specified (principal); R03.0 Elevated blood-pressure reading, without diagnosis of hypertension; Z79.82 Long term (current) use of aspirin
CPT/HCPCS: 51798; 71045; 80053; 81001; 85025; 87086; 93005; 96361; 96374; 99285; J0696; J7040

== ENCOUNTER → 2024-09-02 08:58 | Outpatient (BNVA) | payer BC, SELFPAY | PROVIDERS: PCP Nurse Practitioner; Visit Provider Nurse Practitioner | DX: E11.9 Type 2 diabetes mellitus without complications (principal); I10 Essential (primary) hypertension; E78.5 Hyperlipidemia, unspecified | CPT/HCPCS: 80053; 80061; 83036 ==

== ENCOUNTER → 2024-12-03 09:18 | Outpatient (BNVA) | payer BC, SELFPAY | PROVIDERS: PCP Nurse Practitioner; Visit Provider Nurse Practitioner | DX: E11.9 Type 2 diabetes mellitus without complications (principal); Z12.5 Encounter for screening for malignant neoplasm of prostate | CPT/HCPCS: 80053; 83036; G0103 ==

== ENCOUNTER → 2025-05-04 10:07 | Outpatient (BNVA) | payer BC, SELFPAY | PROVIDERS: PCP Nurse Practitioner; Visit Provider Nurse Practitioner | DX: I10 Essential (primary) hypertension (principal); E11.9 Type 2 diabetes mellitus without complications | CPT/HCPCS: 80053; 83036 ==